=== PATIENT | female | born 1930 | race Caucasian/White ===

== ENCOUNTER → 2016-08-08 | Outpatient (CLI) | payer OTHER ==
[~2016-08-08] MED LIST: AMLO-110 PO; ARC5 PO; ASPI81TA28 PO; CLTP PO; CPR250 PO; DABI1CAP PO; LEVO100T48 PO; LOSA50TA54 PO; LPR25 PO; MGN PO; MULT-506 PO; SIMV20TA5 PO; TRIA37.5 PO
== END | disposition home or self-care (01) ==
LOC: C.LABSPEC 12:26
PROVIDERS: ATTEND Internal Medicine
DX: Z12.11 Encounter for screening for malignant neoplasm of colon (principal)

== ENCOUNTER → 2016-08-13 | Outpatient (CLI) | payer OTHER ==
[2016-08-13 15:37] LABS: BASO % 0.9 %; BASO ABS # 0.05 K/uL (0-0.2); COMPLETE YES; EOS % 2.8 %; HEMATOCRIT 32.9 % (37-47); IG% 0.4 %; LYMPH % 18.2 %; LYMPH ABS # 0.97 K/uL (1.2-3.4); MEAN CORPUSCULAR HGB CONC 31.9 g/dl (32-36); MEAN PLATELET VOLUME 11.5 fL (7.4-10.4); MONO % 6.7 %; PLATELET COUNT 254 K/uL (130-400); WHITE BLOOD COUNT 5.34 K/uL (4.8-10.8)
[2016-08-13 15:45] LABS: BLOOD UREA NITROGEN 41 mg/dl (7-18); BUN/CREATININE RATIO 25.9 (10-20); GLUCOSE 165 mg/dl (70-99); SODIUM 138 mmol/L (136-145)
[2016-08-13 15:46] LABS: ALT/SGPT 16 U/L (12-78); AST/SGOT 18 U/L (15-37); CALCIUM 8.7 mg/dl (8.5-10.1); CARBON DIOXIDE 25 mmol/L (21-32); CHLORIDE 106 mmol/L (98-107); CHOLESTEROL 179 mg/dl (0-200); POTASSIUM 4.5 mmol/L (3.5-5.1); TRIGLYCERIDES 142 mg/dl (0-150); VERY LOW DENSITY LIPOPROT CALC 28 mg/dl
[2016-08-13 15:53] LABS: ALB/GLOB RATIO 0.9 (0.9-2); ALKALINE PHOSPHATASE 69 U/L (45-117); CHOLESTEROL/HDL RATIO 3.7; HDL CHOLESTEROL 48 mg/dl; THYROID STIMULATING HORMONE 0.459 uIu/ml (0.300-4.500)
== END | disposition home or self-care (01) ==
LOC: C.LABSPEC 15:10
PROVIDERS: ATTEND Internal Medicine
DX: Z00.01 Encounter for general adult medical examination with abnormal findings (principal); I25.10 Atherosclerotic heart disease of native coronary artery without angina pectoris; E03.9 Hypothyroidism, unspecified; I10 Essential (primary) hypertension

== ENCOUNTER 2017-02-04 14:55 | Inpatient (IN) | payer OTHER ==
[2017-02-04] VITALS (7 sets, daily range): BP systolic 183–205; BP diastolic 45–72; PULSE 89–101; TEMP 36.3–36.8; O2SAT 96–98; Ht 172.1 cm; Wt 73.1 kg
[~2017-02-04] VITALS: Ht 172.1 cm; Wt 73.1 kg
[~2017-02-04 14:55] MED LIST changes: -ARC5 PO; -CPR250 PO
[2017-02-04] MEDS ORDERED: ACETAMINOPHEN 325 MG TAB PO PRN (15:15)
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
[2017-02-04 16:11] LABS: HEMATOCRIT 33.3 % (37-47); MEAN CELL VOLUME 92.5 fL (80-100); MEAN CORPUSCULAR HEMOGLOBIN 28.9 pg (25-34); MEAN PLATELET VOLUME 9.9 fL (7.4-10.4); PLATELET COUNT 257 K/uL (130-400)
[2017-02-04 16:25] LABS: INR 1.1 (0.9-1.1); PARTIAL THROMBOPLASTIN RATIO 1.2; PROTHROMBIN TIME (PATIENT) 11.3 SECONDS (9.0-12.0)
[2017-02-04 16:35] LABS: MEAN CORPUSCULAR HGB CONC 31.2 g/dl (32-36)
[2017-02-04 16:48] LABS: BASO % 0.4 %; BASO ABS # 0.03 K/uL (0-0.2); COMPLETE YES; EOS % 0.4 %; IG% 0.4 %; LYMPH % 5.7 %; LYMPH ABS # 0.45 K/uL (1.2-3.4); MONO % 0.8 %; NEUT % 92.3 %
[2017-02-04] MEDS: METHYLPREDNISOLONE IV 20 MG in SYRINGE 0 ML IV SCH ×2 (16:48→21:56)
[2017-02-04] MEDS ORDERED: HydrALAZINE HCL 20 MG/ML VIAL IV. STA (16:52)
[2017-02-04] MEDS ORDERED: HydrALAZINE HCL 20 MG/ML VIAL ONE (16:55)
[2017-02-04 17:05] LABS: ALB/GLOB RATIO 0.9 (0.9-2); ALKALINE PHOSPHATASE 79 U/L (45-117); ALT/SGPT 16 U/L (12-78); AST/SGOT 17 U/L (15-37); BLOOD UREA NITROGEN 43 mg/dl (7-18); BUN/CREATININE RATIO 28.4 (10-20); CALCIUM 8.8 mg/dl (8.5-10.1); CARBON DIOXIDE 22 mmol/L (21-32); CHLORIDE 114 mmol/L (98-107); GLUCOSE 125 mg/dl (70-99); MAGNESIUM 2.5 mg/dl (1.8-2.4); POTASSIUM 4.9 mmol/L (3.5-5.1); SODIUM 141 mmol/L (136-145)
[2017-02-04] MEDS ORDERED: LORAZEPAM INJ 0.5 MG in SYRINGE 0.25 ML IV SCH (17:30)
[2017-02-04 18:18] LABS: URINE APPEARANCE CLEAR (CLEAR); URINE BILIRUBIN NEG (NEG); URINE COLOR YELLOW; URINE NITRITE NEG (NEG); UROBILINOGEN NEG (NEG)
[2017-02-04 18:21] LABS: MANUAL MICROSCOPIC REQUIRED? NO; REVIEW REQ? NO
[2017-02-04] MEDS ORDERED: PATIENT'S HEIGHT AND/OR WEIGHT NEEDED SCH (19:00)
[2017-02-04] MEDS ORDERED: GADAVIST IV PRN (19:30)
--- NOTE | 2017-02-04 19:49 | DIAGNOSTIC IMAGING REPORT ---
MRI OF THE BRAIN COMBO CLINICAL HISTORY: Mental status change. COMPARISON STUDY: MRI of the brain dated 01/28/2009. TECHNIQUE: MRI of the brain was performed utilizing various T1 and T2-weighted sequences in the axial, sagittal, and coronal planes. Contrast-enhanced sequences were acquired following the administration of 5 cc of Gadavist. FINDINGS: Brain parenchyma: There are age-related involutional changes noting moderate patchy subcortical and periventricular microangiopathic disease. A chronic left parietal infarct is unchanged from previous. There is no hemorrhage or mass effect. There is no restricted diffusion to suggest acute ischemia. No enhancing mass lesion is identified on the postcontrast images. Sewell-white matter differentiation is preserved. No extra-axial fluid collection is seen. The cerebellar tonsils are normal in configuration. Ventricles, sulci, and cisterns: Prominent secondary to involutional change. Pituitary and sella: Unremarkable. Intracranial vasculature: Normal flow voids are maintained at the skull base. Orbits: The bony orbits are grossly intact. Orbital contents are normal in appearance noting bilateral ocular lens implants. Sinuses and mastoids: Clear. Calvarium: Unremarkable. Cervical cord: Partially visualized cervical spinal cord is normal in morphology and signal intensity. IMPRESSION: Senescent changes as above with no acute intracranial abnormality. Electronically signed by: Rene Almonte M.D. 02/04/2017 7:48 PM Dictated Date/Time: 02/04/2017 7:44 PM
[2017-02-04] MEDS: CALCIUM 600MG + VIT D 400 IU TAB PO SCH (21:24)
[2017-02-04] MEDS: LOSARTAN POTASSIUM 50 MG TAB PO SCH (21:24)
[2017-02-04] MEDS: SIMVASTATIN 20 MG TAB PO SCH (21:24)
[2017-02-04] MEDS: DABIGATRAN ELEXILATE 75 MG CAP PO SCH (21:25)
[2017-02-04] MEDS: METOPROLOL TARTRATE 25 MG TAB PO SCH (21:25)
--- NOTE | 2017-02-04 21:32 | DIAGNOSTIC IMAGING REPORT ---
ULTRASOUND OF THE CAROTID ARTERIES CLINICAL HISTORY: Change in mental status.. COMPARISON STUDY: Carotid artery ultrasound dated 12/01/2015. TECHNIQUE: Real-time, grayscale, and color Doppler sonography of the carotid arteries is performed. Images are reviewed in the transverse and longitudinal planes. FINDINGS: Blood pressure in the right arm measures 201/76 and blood pressure in the left arm measures 202/64. The carotid arteries are patent bilaterally and demonstrate antegrade flow. There is moderate echogenic shadowing atherosclerotic plaque seen on the right. Only mild plaque is seen on the left. Normal doppler arterial waveforms are seen throughout. Mildly elevated velocities within the left internal carotid artery proximally are likely on a technical basis. No significant stenosis is seen on the grayscale imaging. Velocity measurements are listed below. Common carotid peak systolic velocity (cm/sec): RIGHT: 125 LEFT: 127 ICA proximal peak systolic velocity (cm/sec): RIGHT: 204 LEFT: 149 ICA mid peak systolic velocity (cm/sec): RIGHT: 200 LEFT: 129 ICA distal peak systolic velocity (cm/sec): RIGHT: 138 LEFT: 109 ICA/CC peak systolic ratio: RIGHT: 1.6 LEFT: 1.2 Antegrade flow was shown in the vertebral arteries. The external carotid arteries are patent. Elevated velocities within the external carotid arteries suggests some degree of stenosis. IMPRESSION: 1. Findings are consistent with 50-69 % stenosis at the origin of the right internal carotid artery by velocity criteria. This is similar to previous. 2. There is no sonographic evidence of hemodynamically significant stenosis in the left carotid system. Mildly elevated velocities are likely on a technical basis. 3. Antegrade flow is shown in the vertebral arteries. 4. Elevated blood pressures as above. Electronically signed by: Rene Almonte M.D. 02/04/2017 9:30 PM Dictated Date/Time: 02/04/2017 9:27 PM
[2017-02-05] VITALS: BP 177/70; PULSE 78; TEMP 36.8; O2SAT 95
[2017-02-05] MEDS: METHYLPREDNISOLONE IV 20 MG in SYRINGE 0 ML IV SCH ×4 (03:59→21:08)
[2017-02-05] MEDS: METOPROLOL TARTRATE 25 MG TAB PO SCH ×3 (05:44→21:03)
[2017-02-05] MEDS: LEVOTHYROXINE 100 MCG TAB PO SCH (05:44)
[2017-02-05 07:56] LABS: COMPLETE YES; HEMATOCRIT 32.1 % (37-47); IG% 0.1 %; LYMPH % 7.5 %; LYMPH ABS # 0.59 K/uL (1.2-3.4); MEAN CORPUSCULAR HEMOGLOBIN 29.5 pg (25-34); MEAN CORPUSCULAR HGB CONC 32.1 g/dl (32-36); MEAN PLATELET VOLUME 9.9 fL (7.4-10.4); MONO % 1.1 %; NEUT % 91.3 %; PLATELET COUNT 247 K/uL (130-400); RED BLOOD COUNT 3.49 M/uL (4.2-5.4); WHITE BLOOD COUNT 7.85 K/uL (4.8-10.8)
[2017-02-05] MEDS: LOSARTAN POTASSIUM 50 MG TAB PO SCH ×2 (07:58→21:03)
[2017-02-05] MEDS: AMLODIPINE BESYLATE 5 MG TAB PO SCH (07:58)
[2017-02-05] MEDS: DABIGATRAN ELEXILATE 75 MG CAP PO SCH ×2 (07:58→21:03)
[2017-02-05] MEDS: ASPIRIN 81 MG ECTAB PO SCH (07:59)
[2017-02-05] MEDS: MULTIVITAMIN TAB PO SCH (07:59)
[2017-02-05] MEDS: TRIAMTERENE/HCTZ 37.5/25MG CAP PO SCH (07:59)
[2017-02-05] MEDS: CALCIUM 600MG + VIT D 400 IU TAB PO SCH ×2 (07:59→21:03)
[2017-02-05 08:07] VITALS: BP 174/80; PULSE 65; TEMP 36.6; O2SAT 96
[2017-02-05 08:27] LABS: BUN/CREATININE RATIO 29.2 (10-20); CALCIUM 9.3 mg/dl (8.5-10.1); CREATININE 1.5 mg/dl (0.60-1.20); POTASSIUM 5.1 mmol/L (3.5-5.1)
--- NOTE | 2017-02-05 09:14 | DIAGNOSTIC IMAGING REPORT ---
CHEST 2 VIEWS ROUTINE CLINICAL HISTORY: Mental status changes. COMPARISON STUDY: Chest radiograph February 10, 2015. FINDINGS: No pneumothorax or pleural effusion is present. There is no evidence of pulmonary edema. A lower mediastinal contour abnormality is noted. Mild bibasilar opacities are present. There is no lobar consolidation. IMPRESSION: 1. Mild bibasilar opacities which could reflect atelectasis or a mild infectious process. 2. Lower mediastinal contour abnormality which is nonspecific but may reflect a hiatal hernia. Electronically signed by: Estevan Mccoy M.D. 02/05/2017 9:13 AM Dictated Date/Time: 02/05/2017 9:08 AM
--- NOTE | 2017-02-05 10:44 | Progress Note ---
Progress Note Date of Service Feb 05, 2017. Progress Note 86-year-old female admitted directly from the office yesterday with mental status changes with severe memory deficit area from the time I saw her in the office in November of this year until yesterday her memory has deteriorated significantly. She denied any fall. No headache no dizziness no lightheadedness. No chest pain no shortness of breath. No abdominal pain no nausea no vomiting. She was not having any problem with any disequilibrium. She has a rash consistent with poison macie exposure Patient was admitted. All her laboratory tests and imaging studies were done. All her laboratory tests were quite unremarkable. MRI of the brain without and with contrast showed no evidence of any acute changes chest changes related to her age. Carotid artery ultrasound showed 50-69% stenosis of the right carotid artery. At this point she is feeling well. She she denied any headache. No dizziness or lightheadedness. No chest pain no shortness of breath. No nausea no vomiting. Tolerating her diet. No pain in her back or extremities. During our conversation and she asks the same question and makes the same comment 2-3 times. EXAMINATION She is well-developed in no distress. Vital signs: Blood pressure 174/80, pulse 65, respiration 18, temperature 36.6, oxygen saturation 96% on room air Skin is warm and dry. The rash from her poison macie exposure is resolving. She is on IV Solu-Medrol HEENT no mucosal abnormality. Neck is supple without lymph node or thyroid enlargement. No JVD. Left-sided neck scar. Heart regular heart sounds. Lungs are clear Abdomen is soft nontender. Back no spinal tenderness. Extremities no edema clubbing or cyanosis. Neurological examination she is quite conversant. As noted she asks the same question and repeated the same comments many times during a short conversation. No evidence of any lateralized deficit. LABORATORY TESTS WBC count 7850, hemoglobin 10.3, hematocrit 32.1%, platelet count 247,000. Sodium 140, potassium 5.1, chloride 112, CO2 22, BU and 44, creatinine 1.5, glucose 143, calcium 9.3 Carotid ultrasound showed 50-69% stenosis at the origin of the right internal carotid artery. No other significant abnormalities were noted. MRI of the brain without and with contrast showed age related changes without any other abnormalities ASSESSMENT * Mental status changes with severe memory deficit * Arterial hypertension * Paroxysmal atrial fibrillation * Hypothyroidism PLAN: * Continuing her medications * Continue IV Solu-Medrol * Neurology consultation. I spoke with Dr. Lance Delgadillo. * Case management consultation * I spoke with her daughter Michael. The plan at this time is to proceed with independent living under supervision at the [facility]. She told me that they have an appointment next Tuesday to look at the apartments. Case management will be making the referral so hopefully we'll could accelerate the process * I was able to walk with her around the unit today without any problem she maintains a good balance and equilibrium. * I spoke with her again today that she should not be driving. She is agreeable. I also spoke with her daughter about the same issue. She is also agreeable.
[2017-02-05] MEDS ORDERED: AMLODIPINE BESYLATE 5 MG TAB PO ONE (10:45)
--- NOTE | 2017-02-05 11:44 | Neurology Consultation ---
Neurology Consultation Date of Consultation: Feb 05, 2017. Attending Physician: Moose Chow M.D. Primary Care Physician: Moose Chow M.D. Reason for Consultation: Dementia History of Present Illness Source: patient, hospital records The patient is an 86-year-old female who complains of increasing difficulty with short-term memory that began gradually several years ago but has gotten significantly worse over time. She is and lives alone. She has a few children that live out of town that have noted she has had some problems with memory as well. She follows regularly with Dr. Liv Lama for several chronic medical conditions including hypertension, hypothyroidism and paroxysmal atrial fibrillation for which she is prescribed Pradaxa. She has a history of left carotid endarterectomy. Her medical condition has been stable although she was recently diagnosed with some poison macie affecting her right upper arm which she has been treating with a cream or ointment. The patient is aware that she has been having problems with her memory for quite some time. She does have some difficulty providing more specific information but seems to agree that recent or short-term memory is affected to a greater degree than distant memories. She has been noted to repeat herself often. She is able to recall details from her past and indicates that she has been living in the same single home in [place] for about 50 years. She continues to live independently although her family has expressed some concern recently over her ability to continue to do so. There are some tentative plans to consider alternative/assisted living arrangements. The patient continues to drive. I reviewed the images as well as the radiologist's interpretation of the recently completed brain MRI. The study does reveal rather significant generalized atrophy as well as chronic small vessel ischemic disease and evidence of a small chronic left parietal lobe infarct primarily affecting the cortex. Recently completed labs including a vitamin B-12 level, folate, and TFTs are within normal limits. A recently completed EKG reveals a normal sinus rhythm. Dr. Liv Lama indicated she has scored 22 out of 30 on a mini mental status examination recently. Family History Family history notable for some dementia in the mother who at an old age Social History Smoking Status: Never smoker Marital Status: Housing Status: lives alone Occupation Status: retired Allergies Coded Allergies: No Known Allergies (Verified , 05/30/14) Current Inpatient Medications Current Inpatient Medications Medications (Trade) Dose Ordered Sig/Mateo Route Start Time Stop Time Status Last Admin Dose Admin Acetaminophen (Tylenol Tab) 650 mg Q4H PRN PO 02/04/17 15:15 03/06/17 15:14 Methylprednisolone Sodium Succinate 20 mg/Syringe 0.32 ml @ 1.5 mls/min Q6H IV 02/04/17 16:00 03/06/17 15:59 02/05/17 10:19 1.5 MLS/MIN Amlodipine Besylate (Norvasc Tab) 5 mg DAILY PO 02/05/17 09:00 03/07/17 08:59 02/05/17 07:58 5 MG Aspirin (Ecotrin Tab) 81 mg DAILY PO 02/05/17 09:00 03/07/17 08:59 02/05/17 07:59 81 MG Calcium/Vitamin D (Caltrate Plus Tab) 1 tab BID PO 02/04/17 21:00 03/06/17 20:59 02/05/17 07:59 1 TAB Dabigatran (Pradaxa Cap) 75 mg BID PO 02/04/17 21:00 03/06/17 20:59 02/05/17 07:58 75 MG Levothyroxine Sodium (Synthroid Tab) 100 mcg DAILYBB PO 02/05/17 06:30 03/07/17 06:29 02/05/17 05:44 100 MCG Losartan Potassium (coZAAR TAB) 50 mg BID PO 02/04/17 21:00 03/06/17 20:59 02/05/17 07:58 50 MG Metoprolol Tartrate (Lopressor Tab) 25 mg Q8 PO 02/04/17 22:00 03/06/17 21:59 02/05/17 05:44 25 MG Multivitamins (Multivitamin Tab) 1 tab DAILY PO 02/05/17 09:00 03/07/17 08:59 02/05/17 07:59 1 TAB Simvastatin (Zocor Tab) 20 mg HS PO 02/04/17 21:00 03/06/17 20:59 02/04/17 21:24 20 MG Triamterene/HCTZ (Dyazide 37.5/25 Mg Cap) 1 cap DAILY PO 02/05/17 09:00 03/07/17 08:59 02/05/17 07:59 1 CAP Gadobutrol (Gadavist) 5 mmol UD PRN IV 02/04/17 19:30 02/08/17 19:29 Review of Systems Constitutional: No fever or chills Eyes: No vision loss or diplopia ENT: No gross hearing loss or vertigo Cardiovascular: No chest pain Respiratory: No shortness of breath Genitourinary: No incontinence Neurological: As per history of present illness Psychiatric: No depression or anxiety Skin: As per history of present illness A full 10 point review of systems was obtained on this patient with pertinent positives and negatives described in the history of present illness and otherwise listed above. All remaining systems reviewed and are negative. Physical Exam Vital Signs (Past 24 Hrs): Date Time Temp Pulse Resp B/P (MAP) Pulse Ox O2 Delivery O2 Flow Rate FiO2 02/05/17 08:45 Room Air 02/05/17 08:07 36.6 65 18 174/80 (111) 96 Room Air 02/05/17 00:00 36.8 78 18 177/70 (105) 95 Room Air 02/05/17 00:00 95 Room Air 02/04/17 21:33 94 189/52 (97) 02/04/17 20:11 36.3 94 18 183/72 (109) 97 Room Air 02/04/17 18:42 98 187/66 (106) 02/04/17 17:37 36.8 89 18 205/72 96 Room Air 02/04/17 17:17 101 195/45 (95) 98 Room Air 02/04/17 16:12 201/68 (112) 02/04/17 16:11 36.8 89 18 205/72 (116) 96 Room Air The patient is a well-developed, well-nourished, elderly female. She is lying comfortably in bed. She is alert and oriented to person, place, and day of the week. She misses the exact date. She exhibits impaired delayed recall, 0 out of 3 objects remembered. Attention and concentration seem to be normal. She was able to spell world backwards and followed multistep commands without much difficulty. Patient exhibits a normal spontaneous speech pattern and normal vocabulary. Fund of knowledge seems to be normal. Visual kenney full to confrontation. Visual acuity normal. Pupils equal round reactive to light and accommodation. Eye movements normal. Facial sensation intact. There is normal facial symmetry and strength. Hearing is diminished to finger rub bilaterally. Palate elevates to midline. Shoulder shrug strength intact bilaterally. Tongue protrudes to midline. Deep tendon reflexes are intact and symmetrical for the arms and legs. Plantar responses downgoing bilaterally. There is no dysdiadochokinesia or dysmetria with finger to nose or heel to chong. Ophthalmoscopic examination reveals normal-appearing optic disks and posterior segments. No papilledema or hemorrhages. Carotid pulses normal bilaterally, no bruits to auscultation. Gait and station normal. Muscle strength normal for the arms and legs bilaterally. Muscle tone normal throughout. No atrophy. No abnormal movements observed. Laboratory Results Past 24 Hours: 02/05/17 07:38 Red Blood Count 3.49, Mean Corpuscular Volume 92.0, Mean Corpuscular Hemoglobin 29.5, Mean Corpuscular Hemoglobin Concent 32.1, Mean Platelet Volume 9.9, Neutrophils (%) (Auto) 91.3, Lymphocytes (%) (Auto) 7.5, Monocytes (%) (Auto) 1.1, Eosinophils (%) (Auto) 0.0, Basophils (%) (Auto) 0.0, Neutrophils # (Auto) 7.16, Lymphocytes # (Auto) 0.59, Monocytes # (Auto) 0.09, Eosinophils # (Auto) 0.00, Basophils # (Auto) 0.00 02/05/17 07:38 Test 02/04/17 15:50 02/04/17 16:50 02/05/17 07:38 Prothrombin Time 11.3 SECONDS (9.0-12.0) Prothromb Time International Ratio 1.1 (0.9-1.1) Activated Partial Thromboplast Time 31.6 SECONDS (21.0-31.0) Partial Thromboplastin Ratio 1.2 Magnesium Level 2.5 mg/dl (1.8-2.4) Total Bilirubin 0.7 mg/dl (0.2-1) Aspartate Amino Transf (AST/SGOT) 17 U/L (15-37) Alanine Aminotransferase (ALT/SGPT) 16 U/L (12-78) Alkaline Phosphatase 79 U/L (45-117) Total Protein 7.6 gm/dl (6.4-8.2) Albumin 3.6 gm/dl (3.4-5.0) Globulin 4.0 gm/dl (2.5-4.0) Albumin/Globulin Ratio 0.9 (0.9-2) Vitamin B12 Level 543 pg/mL (211-911) Folate > 24.00 ng/mL (>5.38) Thyroid Stimulating Hormone (TSH) 1.690 uIu/ml (0.300-4.500) Free Thyroxine 1.19 ng/dl (0.80-1.60) Urine Color YELLOW Urine Appearance CLEAR (CLEAR) Urine pH 5.0 (4.5-7.5) Urine Specific [place]iner 1.020 (1.000-1.030) Urine Protein NEG (NEG) Urine Glucose (UA) NEG (NEG) Urine Ketones NEG (NEG) Urine Occult Blood TRACE (NEG) Urine Nitrite NEG (NEG) Urine Bilirubin NEG (NEG) Urine Urobilinogen NEG (NEG) Urine Leukocyte Esterase MODERATE (NEG) Urine WBC (Auto) 5-10 /hpf (0-5) Urine RBC (Auto) 0-4 /hpf (0-4) Urine Hyaline Casts (Auto) 1-5 /lpf (0-5) Urine Epithelial Cells (Auto) 10-20 /lpf (0-5) Urine Bacteria (Auto) NEG (NEG) White Blood Count 7.85 K/uL (4.8-10.8) Red Blood Count 3.49 M/uL (4.2-5.4) Hemoglobin 10.3 g/dL (12.0-16.0) Hematocrit 32.1 % (37-47) Mean Corpuscular Volume 92.0 fL (80-100) Mean Corpuscular Hemoglobin 29.5 pg (25-34) Mean Corpuscular Hemoglobin Concent 32.1 g/dl (32-36) Platelet Count 247 K/uL (130-400) Mean Platelet Volume 9.9 fL (7.4-10.4) Neutrophils (%) (Auto) 91.3 % Lymphocytes (%) (Auto) 7.5 % Monocytes (%) (Auto) 1.1 % Eosinophils (%) (Auto) 0.0 % Basophils (%) (Auto) 0.0 % Neutrophils # (Auto) 7.16 K/uL (1.4-6.5) Lymphocytes # (Auto) 0.59 K/uL (1.2-3.4) Monocytes # (Auto) 0.09 K/uL (0.11-0.59) Eosinophils # (Auto) 0.00 K/uL (0-0.5) Basophils # (Auto) 0.00 K/uL (0-0.2) RDW Standard Deviation 45.0 fL (36.4-46.3) RDW Coefficient of Variation 13.4 % (11.5-14.5) Immature Granulocyte % (Auto) 0.1 % Immature Granulocyte # (Auto) 0.01 K/uL (0.00-0.02) Anion Gap 6.0 mmol/L (3-11) Est Creatinine Clear Calc Drug Dose 25.9 ml/min Estimated GFR () 35.7 Estimated GFR (Non- 30.8 BUN/Creatinine Ratio 29.2 (10-20) Calcium Level 9.3 mg/dl (8.5-10.1) Impression 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 Simple bedside cognitive testing this morning suggests a problem with delayed recall or short- term memory which is consistent with her reported history. Plan I think starting treatment with a cholinesterase inhibitor such as donepezil would be reasonable for this patient. I would recommend starting with donepezil 5 mg at bedtime. I agree that it would be beneficial to start looking into an assisted living arrangement at this time in light of her dementia. In light of her diagnosis and reported poor performance on a Mini-Mental status examination recently she should probably not drive. This patient may follow-up with me in clinic Thank you for the consult
[2017-02-05 13:43] VITALS: BP 190/77; PULSE 68
[2017-02-05 15:40] VITALS: BP 153/76; PULSE 68; TEMP 36.7; O2SAT 96
[2017-02-05 20:54] VITALS: BP 188/68; PULSE 68
[2017-02-05] MEDS ORDERED: DONEPEZIL HCL 5 MG TAB PO SCH (21:00)
[2017-02-05] MEDS: SIMVASTATIN 20 MG TAB PO SCH (21:03)
[2017-02-05 23:23] VITALS: BP 167/74; PULSE 65; TEMP 36.8; O2SAT 93
[2017-02-06] MEDS: METHYLPREDNISOLONE IV 20 MG in SYRINGE 0 ML IV SCH ×2 (04:20→09:36)
[2017-02-06 05:47] VITALS: BP 197/45; PULSE 74
[2017-02-06] MEDS: METOPROLOL TARTRATE 25 MG TAB PO SCH (05:52)
[2017-02-06] MEDS: LEVOTHYROXINE 100 MCG TAB PO SCH (05:52)
[2017-02-06] MEDS: DABIGATRAN ELEXILATE 75 MG CAP PO SCH (07:30)
[2017-02-06] MEDS: AMLODIPINE BESYLATE 5 MG TAB PO SCH (07:31)
[2017-02-06] MEDS: MULTIVITAMIN TAB PO SCH (07:31)
[2017-02-06] MEDS: LOSARTAN POTASSIUM 50 MG TAB PO SCH (07:31)
[2017-02-06] MEDS: TRIAMTERENE/HCTZ 37.5/25MG CAP PO SCH (07:31)
[2017-02-06] MEDS: ASPIRIN 81 MG ECTAB PO SCH (07:31)
[2017-02-06] MEDS: CALCIUM 600MG + VIT D 400 IU TAB PO SCH (07:32)
[2017-02-06 07:56] VITALS: BP 181/75; PULSE 62; TEMP 36.3; O2SAT 90
[2017-02-06] MEDS ORDERED: AMLODIPINE BESYLATE 5 MG TAB PO SCH ×2 (09:00)
[2017-02-06] MEDS ORDERED: CIPROFLOXACIN 250 MG TAB PO SCH (09:00)
[2017-02-06] MEDS ORDERED: CPR250 PO (09:19)
[2017-02-06] MEDS ORDERED: ARC5 PO (09:19)
--- NOTE | 2017-02-06 09:24 | Discharge Instructions ---
Discharge Instructions Date of Service Feb 06, 2017. Admission Reason for Admission: Mental Status Change Dementia Arterial hypertension Paroxysmal atrial fibrillation Carotid artery disease Hypothyroidism Hyperlipidemia Urinary tract infection Discharge Discharge Diagnosis / Problem: mental status changes. Dementia. Urinary tract infection. Discharge Goals Goal(s): Decrease discomfort, Improve function, Increase independence, Improve disease control Activity Recommendations Activity Limitations: as noted below NO DRIVING . Instructions / Follow-Up Instructions / Follow-Up Dr Dahl next or Tuesday. Please call for appointment Current Hospital Diet Patient's current hospital diet: Regular Diet Discharge Diet Recommended Diet: Regular Diet Pending Studies Studies pending at discharge: no Medical Emergencies . Who to Call and When: Medical Emergencies: If at any time you feel your situation is an emergency, please call 911 immediately. . Non-Emergent Contact Non-Emergency issues call your: Primary Care Provider . . "Provider Documentation" section prepared by Moose Dahl. . VTE Core Measure Inpt VTE Proph given/why not?: Other Anticoagulation
--- NOTE | 2017-02-06 09:36 | Progress Note ---
Progress Note Date of Service Feb 06, 2017. Progress Note 86-year-old female admitted with mental status changes and severe changes as far as her memory is concerned. Her medical problems include arterial hypertension, paroxysmal atrial fibrillation, hypercholesterolemia, hypothyroidism. She also has a dermatitis secondary to poison macie. She was treated with IV Solu-Medrol. Her rash is subsiding. Patient was admitted. All her laboratory tests and imaging studies were done. There were quite unremarkable. Patient has developed dementia. Manifested mostly by marked her memory deficit of short-term memory. Patient was seen in neurology consultation by Dr. Lance Delgadillo. He recommended starting Aricept 5 mg daily which I stated yesterday. EXAMINATION She is well-developed in no distress Vital signs blood pressure 181/75, pulse 62, respiration 18, temperature 36.3, oxygen saturation 90% on room air Skin is warm and dry. Her rash is subsiding HEENT no mucosal abnormalities Neck supple without lymph node or thyroid enlargement. No JVD. Normal carotid pulses. Left carotid bruit. Surgical scar from prior carotid endarterectomy. Heart regular heart sounds without any murmur rub or gallop Lungs are clear Abdomen is soft nontender without organomegaly or masses Back no spinal tenderness Extremities no edema clubbing or cyanosis ASSESSMENT: * Mental status changes * Dementia * Arterial hypertension * Urinary tract infection * Paroxysmal atrial fibrillation * Dermatitis secondary to poison macie * Hypercholesteremia * Hypothyroidism PLAN: * She was already started on Aricept 5 mg daily. We will monitor how she reacts to the medication make sure she is tolerating it and eventually increased to 10 mg daily * She was started on ciprofloxacin 250 mg twice a day for her urinary tract infection * Continuing on her other medications * As noted yesterday the process has been initiated for her to go to the [facility]. Her daughter is coming on Tuesday of this coming week and they will be visiting the facility and make decisions as far as the services she needs. * She was asked not to drive. She is agreeable. * She is being discharged today * I will see her in the office next week * We will schedule a neurology follow-up as an outpatient in the future with Dr. Delgadillo
[2017-02-06 09:47] VITALS: BP 181/75; PULSE 62; TEMP 36.3; O2SAT 90
--- NOTE | 2017-02-17 21:49 | Discharge Summary ---
Discharge Summary Date of Service Feb 17, 2017. Discharge Summary ADMISSION DATE: 02/04/2017 DISCHARGE DATE: Q02/06/2017 DISCHARGE DIAGNOSES: * mental status changes * Dementia * Arterial hypertension * Paroxysmal atrial radiation * Carotid artery disease. Status post left carotid endarterectomy * Hypothyroidism * Hyperlipidemia * Urinary tract infection DISCHARGE MEDICATIONS: * ciprofloxacin 250 mg twice a day for 6 days * Aricept 5 mg daily * Amlodipine 5 mg daily * Aspirin 81 mg daily * Calcium with vitamin D 600 mg twice a day * Projects at 75 mg twice a day * Levothyroxine 0.1 mg daily 6 days a week. None on Tuesday. * Losartan 50 mg twice a day * Magnesium 250 mg daily * Metoprolol tartrate 25 mg every 8 hours in * Multivitamin one daily * Simvastatin 20 mg daily * Triamterene/HCTZ 37.5/25 one half tablet daily CONSULTATION: Dr. Lnace Delgadillo in neurology [id number] female admitted directly from the office with mental status changes. Patient with multiple medical problems as noted above. She was seen in the office on the day of admission because she developed a rash after working outside. It was related to poison macie. On the day prior to her admission she was started on Medrol Dosepak but she did not start the medication yet. Patient was noted by her family and by her friends that she has been extremely forgetful. Her condition has been deteriorating. I last saw her in the office in November. But from her last visit on per the day of admission I noticed remarkable changes with her memory. She cannot recall anything about the discussion that we just had. She asks the same question many time. She has not had any headache or dizziness. No lightheadedness. No chest pain or shortness of breath. No abdominal pain. No nausea or vomiting. She had no pain in her back or extremities. A Mini-Mental status examination was done in the office. She scored 22/30 points. Arrangements were made for admission. We called her friend. I did not want her to drive. Her friend came to the office and transported her to the hospital. PAST MEDICAL HISTORY, SOCIAL HISTORY, FAMILY HISTORY: As noted on admission history and physical ALLERGIES: NONE ADMISSION MEDICATIONS: As noted on the home medication list PHYSICAL EXAMINATION AND LABORATORY TESTS ARE NOTED ON ADMISSION HITORY AND PHYSICAL HOSPITAL COURSE: patient was admitted to a medical bed. Resuscitation everyone. All her laboratory tests were ordered. EKG was ordered. MRI of the brain was ordered. She was continued on her medications. Neurology consultation was requested. All of her laboratory tests were quite unremarkable. Her urine culture was positive. It grew Citrobacter. She was treated with ciprofloxacin. Carotid ultrasound showed findings consistent with 50-69% stenosis at the origin of the right internal carotid artery. There was no significant stenosis on the left side. MRI of the brain showed changes consistent with her age. Chest x-ray showed possible atelectasis. There was no evidence clinically of any infectious process. Electrocardiogram showed a sinus rhythm. Nonspecific ST-T wave changes. Her condition remained stable. She was seen in neurology consultation by Dr. Delgadillo. The recommendation was to start Aricept 5 mg daily. Arrangements were made for her to go home. Her friend did pick her up. Patient and her daughter had an appointment to visit the [facility] in order to make arrangements for her to move from her own home to the personal care facility.she was to have a followup with me in the office in one week.
== END 2017-02-06 13:20 | disposition home or self-care (01) | DRG 948 ==
LOC: C.MED 15:14
PROVIDERS: ADMIT Internal Medicine; ATTEND Internal Medicine
DX: R41.82 Altered mental status, unspecified (principal); N39.0 Urinary tract infection, site not specified; G30.9 Alzheimer's disease, unspecified; F02.80 Dementia in other diseases classified elsewhere, unspecified severity, without behavioral disturbance, psychotic disturbance, mood disturbance, and anxiety; F01.50 Vascular dementia, unspecified severity, without behavioral disturbance, psychotic disturbance, mood disturbance, and anxiety; I10 Essential (primary) hypertension; I48.0 Paroxysmal atrial fibrillation; E78.00 Pure hypercholesterolemia, unspecified; E03.9 Hypothyroidism, unspecified; I25.10 Atherosclerotic heart disease of native coronary artery without angina pectoris; L23.7 Allergic contact dermatitis due to plants, except food; Z79.01 Long term (current) use of anticoagulants; Z79.82 Long term (current) use of aspirin; Z79.899 Other long term (current) drug therapy; Z88.5 Allergy status to narcotic agent; Z88.7 Allergy status to serum and vaccine; Z88.8 Allergy status to other drugs, medicaments and biological substances; Z81.8 Family history of other mental and behavioral disorders; Z82.49 Family history of ischemic heart disease and other diseases of the circulatory system; Z82.3 Family history of stroke

== ENCOUNTER → 2017-04-11 | Outpatient (CLI) | payer OTHER ==
[~2017-04-11] MED LIST changes: +ACET-1311 PO; +ARC5 PO; +CIPR250T5 PO; +LEVO1TAB33 PO
== END | disposition home or self-care (01) ==
LOC: C.LABSPEC 15:30
PROVIDERS: ATTEND Internal Medicine
DX: I15.0 Renovascular hypertension (principal); N39.0 Urinary tract infection, site not specified

== ENCOUNTER 2017-04-15 10:59 | Emergency (ER) | payer OTHER ==
[~2017-04-15] VITALS: Ht 167.6 cm; Wt 73.3 kg
[~2017-04-15 10:59] MED LIST changes: -ACET-1311 PO; -LEVO1TAB33 PO
[2017-04-15 11:12] VITALS: TEMP 37
--- NOTE | 2017-04-15 11:24 | DIAGNOSTIC IMAGING REPORT ---
SINGLE VIEW CHEST CLINICAL HISTORY: Weakness. Change in mental status. FINDINGS: An AP, portable, upright chest radiograph is compared to study dated 02/05/2017. The heart is enlarged and there is atherosclerotic calcification of the thoracic aorta. There is mild pulmonary vascular congestion. Enlargement of the central pulmonary vessels suggests pulmonary artery hypertension. Emphysema is suspected. Chronic interstitial thickening is similar to previous. Apical scarring is observed. No airspace consolidation, large pleural effusion, or pneumothorax is seen. The skeletal structures are osteopenic. The bony thorax is grossly intact. IMPRESSION: 1. Cardiomegaly an mild pulmonary vascular congestion. 2. Suspect emphysema. No airspace consolidation or large pleural effusion is identified Electronically signed by: Rene lAmonte M.D. 04/15/2017 11:23 AM Dictated Date/Time: 04/15/2017 11:20 AM
[2017-04-15 11:25] VITALS: O2SAT 98
[2017-04-15 11:32] VITALS: Ht 167.6 cm; Wt 73.3 kg
[2017-04-15] MEDS ORDERED: ACET-1311 PO (11:48)
[2017-04-15] MEDS ORDERED: LEVO1TAB33 PO (11:48)
--- NOTE | 2017-04-15 11:56 | DIAGNOSTIC IMAGING REPORT ---
CT SCAN OF THE BRAIN WITHOUT IV CONTRAST CLINICAL HISTORY: Weakness. Change in mental status. COMPARISON STUDY: MRI of the brain dated 02/04/2017. TECHNIQUE: Unenhanced axial CT scan of the brain is performed from the vertex to the skull base. CT DOSE: 537.48 mGy.cm FINDINGS: Brain parenchyma: There are age-related involutional changes noting [id number] patchy subcortical and periventricular microangiopathic change. There is no hemorrhage, mass effect, or evidence of acute territorial ischemia by CT criteria. Sewell-white matter is preserved. No extra-axial fluid collection is seen. Ventricles, sulci, cisterns: Prominent secondary to involutional change. Intracranial vasculature: There is atherosclerotic calcification of the cavernous carotid arteries. Calvarium: Unremarkable. Sinuses and mastoids: Fluid/secretions is seen within the maxillary antra bilaterally. Mild mucosal thickening is present in the ethmoid sinuses. The mastoid air cells are well pneumatized. Orbits: The bony orbits are grossly intact. There are bilateral ocular lens implants. IMPRESSION: Senescent changes as above with no hemorrhage, mass effect, or evidence of acute territorial ischemia by CT criteria. Electronically signed by: Rene Almonte M.D. 04/15/2017 11:55 AM Dictated Date/Time: 04/15/2017 11:53 AM
[2017-04-15 12:01] LABS: BASO % 0.5 %; BASO ABS # 0.04 K/uL (0-0.2); COMPLETE YES; EOS % 0.6 %; IG% 0.7 %; LYMPH % 9.5 %; LYMPH ABS # 0.81 K/uL (1.2-3.4); MEAN CELL VOLUME 90.4 fL (80-100); MEAN CORPUSCULAR HGB CONC 33.2 g/dl (32-36); MEAN PLATELET VOLUME 9.5 fL (7.4-10.4); MONO % 8.5 %; NEUT % 80.2 %; PLATELET COUNT 318 K/uL (130-400); RED BLOOD COUNT 3.43 M/uL (4.2-5.4); WHITE BLOOD COUNT 8.57 K/uL (4.8-10.8)
[2017-04-15 12:09] LABS: INR 1.2 (0.9-1.1); PARTIAL THROMBOPLASTIN RATIO 1.3; PROTHROMBIN TIME (PATIENT) 12.5 SECONDS (9.0-12.0)
[2017-04-15 12:15] LABS: URINE APPEARANCE CLEAR (CLEAR); URINE BILIRUBIN NEG (NEG); URINE COLOR YELLOW; URINE NITRITE NEG (NEG); URINE PH 7.5 (4.5-7.5); UROBILINOGEN NEG (NEG)
[2017-04-15 12:19] LABS: ALT/SGPT 19 U/L (12-78); AST/SGOT 21 U/L (15-37); BLOOD UREA NITROGEN 18 mg/dl (7-18); BUN/CREATININE RATIO 12.7 (10-20); CARBON DIOXIDE 28 mmol/L (21-32); CHLORIDE 98 mmol/L (98-107); CREATININE 1.42 mg/dl (0.60-1.20); GLUCOSE 112 mg/dl (70-99); MAGNESIUM 2.5 mg/dl (1.8-2.4); POTASSIUM 4.3 mmol/L (3.5-5.1); SODIUM 132 mmol/L (136-145)
[2017-04-15 12:23] LABS: MANUAL MICROSCOPIC REQUIRED? NO; REVIEW REQ? NO
[2017-04-15 12:31] LABS: ALKALINE PHOSPHATASE 61 U/L (45-117); CKMB/CK RATIO 1.7 (0-3.0)
--- NOTE | 2017-04-15 16:10 | EMERGENCY ROOM VISIT NOTE ---
History Report prepared by Willie: Ted Reyes Under the Supervision of: Dr. Jimmy Lezama D.O. First contact with patient: 11:01 Stated Complaint: ILLNESS History of Present Illness The patient is a 86 year old female who presents to the Emergency Room by EMS with complaints of persistent generalized weakness beginning a few days ago. She is a resident at the [facility]. She states "I just don't feel normal". The patient also complains of a cough. She denies nausea, vomiting, diarrhea, headache, abdominal pain, fevers, chest pain, or SOB. She saw her PCP earlier this week and was started on Levaquin for UTI. Source of History: patient Onset: a few days ago Position: other (generalized) Quality: other (weakness) Timing: other (persistent) Associated Symptoms: + cough, No fevers, No headache, No chest pain, No SOB , No nausea, No vomiting, No abdominal pain, No diarrhea Review of Systems See HPI for pertinent positives & negatives. A total of 10 systems reviewed and were otherwise negative. Past Medical & Surgical Medical Problems: (1) Atrial fibrillation (2) Hypertension (3) MENTAL STATUS CHANGES Surgical Problems: (1) History of appendectomy Family History FHx: heart disease FHx: hypertension Social History Smoking Status: Never Smoker Alcohol Use: none Marital Status: Housing Status: lives alone Occupation Status: retired Current/Historical Medications Scheduled Amlodipine (Norvasc), 5 MG PO DAILY Aspirin (Aspirin Ec), 81 MG PO DAILY Calcium/Vitamin D (Caltrate 600 Plus *), 1 TAB PO BID Dabigatran Etexilate Mesylate (Pradaxa), 75 MG PO BID Donepezil HCl (Donepezil HCl), 5 MG PO QPM Levofloxacin (Levaquin), 500 MG PO DAILY Levothyroxine (Levoxyl), 0.1 MG PO 6XWK Losartan Potassium (Cozaar), 50 MG PO BID Magnesium (Magnesium), 250 MG PO DAILY Metoprolol Tartrate (Lopressor), 25 MG PO Q8 Multivitamin (Multivitamin), 1 TAB PO DAILY Simvastatin (Zocor), 20 MG PO HS Triamterene/Hctz (Dyazide 37.5MG/25MG), 0.5 TAB PO DAILY Scheduled PRN Acetaminophen (Tylenol), 650 MG PO Q4 PRN for Pain Allergies Coded Allergies: No Known Allergies (Verified , 04/15/17) Physical Exam Vital Signs Date Time Temp Pulse Resp B/P (MAP) Pulse Ox O2 Delivery O2 Flow Rate FiO2 04/15/17 17:00 88 16 157/72 98 04/15/17 15:17 65 16 167/72 98 Room Air 04/15/17 13:17 73 04/15/17 13:17 71 16 201/96 98 Room Air 04/15/17 11:52 63 16 173/69 98 Room Air 04/15/17 11:25 98 Room Air 04/15/17 11:24 60 186/68 64 167/74 88 177/59 04/15/17 11:24 98 Room Air 04/15/17 11:12 37.0 64 22 206/68 98 Room Air 04/15/17 11:06 64 Physical Exam GENERAL: Patient is awake, alert, and in no acute distress. Patient is resting comfortably and showing no signs of anxiety EYES: The conjunctivae are clear. The pupils are round and reactive. EARS, NOSE, MOUTH AND THROAT: The nose is without any evidence of any deformity. Mucous membranes are moist tongue is midline NECK: The neck is nontender and supple. RESPIRATORY: Scattered rhonchi throughout. No tachypnea or conversational dyspnea noted. CARDIOVASCULAR: Regular rate and rhythm noted there no murmurs rubs or gallops normal S1 normal S2 GASTROINTESTINAL: The abdomen is soft. Bowel sounds are present in all quadrants. Abdomen is nontender MUSCULOSKELETAL/EXTREMITIES: There is no evidence of gross deformity full range of motion is noted in the hips and shoulders SKIN: There is no obvious evidence of any rash. There are no petechiae, pallor or cyanosis noted. NEUROLOGIC: Awake, and oriented to person, place and situation. Strength was symmetric. Medical Decision & Procedures ER Provider Diagnostic Interpretation: Radiology results as stated below per my review and radiologist interpretation: CT SCAN OF THE BRAIN WITHOUT IV CONTRAST FINDINGS: Brain parenchyma: There are age-related involutional changes noting [id number] patchy subcortical and periventricular microangiopathic change. There is no hemorrhage, mass effect, or evidence of acute territorial ischemia by CT criteria. Sewell-white matter is preserved. No extra-axial fluid collection is seen. Ventricles, sulci, cisterns: Prominent secondary to involutional change. Intracranial vasculature: There is atherosclerotic calcification of the cavernous carotid arteries. Calvarium: Unremarkable. Sinuses and mastoids: Fluid/secretions is seen within the maxillary antra bilaterally. Mild mucosal thickening is present in the ethmoid sinuses. The mastoid air cells are well pneumatized. Orbits: The bony orbits are grossly intact. There are bilateral ocular lens implants. IMPRESSION: Senescent changes as above with no hemorrhage, mass effect, or evidence of acute territorial ischemia by CT criteria. Electronically signed by: Rene Almonte M.D. 04/15/2017 11:55 AM SINGLE VIEW CHEST FINDINGS: An AP, portable, upright chest radiograph is compared to study dated 02/05/2017. The heart is enlarged and there is atherosclerotic calcification of the thoracic aorta. There is mild pulmonary vascular congestion. Enlargement of the central pulmonary vessels suggests pulmonary artery hypertension. Emphysema is suspected. Chronic interstitial thickening is similar to previous. Apical scarring is observed. No airspace consolidation, large pleural effusion, or pneumothorax is seen. The skeletal structures are osteopenic. The bony thorax is grossly intact. IMPRESSION: 1. Cardiomegaly an mild pulmonary vascular congestion. 2. Suspect emphysema. No airspace consolidation or large pleural effusion is identified Electronically signed by: Rene Almonte M.D. 04/15/2017 11:23 AM Laboratory Results 04/15/17 11:31 Red Blood Count 3.43, Mean Corpuscular Volume 90.4, Mean Corpuscular Hemoglobin 30.0, Mean Corpuscular Hemoglobin Concent 33.2, Mean Platelet Volume 9.5, Neutrophils (%) (Auto) 80.2, Lymphocytes (%) (Auto) 9.5, Monocytes (%) (Auto) 8.5, Eosinophils (%) (Auto) 0.6, Basophils (%) (Auto) 0.5, Neutrophils # (Auto) 6.88, Lymphocytes # (Auto) 0.81, Monocytes # (Auto) 0.73, Eosinophils # (Auto) 0.05, Basophils # (Auto) 0.04 04/15/17 11:31 Test 04/15/17 11:23 04/15/17 11:31 04/15/17 12:01 Bedside Glucose 116 mg/dl (70-90) White Blood Count 8.57 K/uL (4.8-10.8) Red Blood Count 3.43 M/uL (4.2-5.4) Hemoglobin 10.3 g/dL (12.0-16.0) Hematocrit 31.0 % (37-47) Mean Corpuscular Volume 90.4 fL (80-100) Mean Corpuscular Hemoglobin 30.0 pg (25-34) Mean Corpuscular Hemoglobin Concent 33.2 g/dl (32-36) Platelet Count 318 K/uL (130-400) Mean Platelet Volume 9.5 fL (7.4-10.4) Neutrophils (%) (Auto) 80.2 % Lymphocytes (%) (Auto) 9.5 % Monocytes (%) (Auto) 8.5 % Eosinophils (%) (Auto) 0.6 % Basophils (%) (Auto) 0.5 % Neutrophils # (Auto) 6.88 K/uL (1.4-6.5) Lymphocytes # (Auto) 0.81 K/uL (1.2-3.4) Monocytes # (Auto) 0.73 K/uL (0.11-0.59) Eosinophils # (Auto) 0.05 K/uL (0-0.5) Basophils # (Auto) 0.04 K/uL (0-0.2) RDW Standard Deviation 43.5 fL (36.4-46.3) RDW Coefficient of Variation 13.3 % (11.5-14.5) Immature Granulocyte % (Auto) 0.7 % Immature Granulocyte # (Auto) 0.06 K/uL (0.00-0.02) Prothrombin Time 12.5 SECONDS (9.0-12.0) Prothromb Time International Ratio 1.2 (0.9-1.1) Activated Partial Thromboplast Time 33.2 SECONDS (21.0-31.0) Partial Thromboplastin Ratio 1.3 Anion Gap 6.0 mmol/L (3-11) Est Creatinine Clear Calc Drug Dose 28.0 ml/min Estimated GFR () 38.1 Estimated GFR (Non- 32.9 BUN/Creatinine Ratio 12.7 (10-20) Calcium Level 9.0 mg/dl (8.5-10.1) Magnesium Level 2.5 mg/dl (1.8-2.4) Total Bilirubin 0.6 mg/dl (0.2-1) Direct Bilirubin 0.1 mg/dl (0-0.2) Aspartate Amino Transf (AST/SGOT) 21 U/L (15-37) Alanine Aminotransferase (ALT/SGPT) 19 U/L (12-78) Alkaline Phosphatase 61 U/L (45-117) Total Creatine Kinase 111 U/L (26-192) Creatine Kinase MB 1.9 ng/ml (0.5-3.6) Creatine Kinase MB Ratio 1.7 (0-3.0) Troponin I < 0.015 ng/ml (0-0.045) Total Protein 7.1 gm/dl (6.4-8.2) Albumin 3.3 gm/dl (3.4-5.0) Thyroid Stimulating Hormone (TSH) 15.900 uIu/ml (0.300-4.500) Free Thyroxine 1.31 ng/dl (0.80-1.60) Urine Color YELLOW Urine Appearance CLEAR (CLEAR) Urine pH 7.5 (4.5-7.5) Urine Specific [place] 1.010 (1.000-1.030) Urine Protein NEG (NEG) Urine Glucose (UA) NEG (NEG) Urine Ketones NEG (NEG) Urine Occult Blood NEG (NEG) Urine Nitrite NEG (NEG) Urine Bilirubin NEG (NEG) Urine Urobilinogen NEG (NEG) Urine Leukocyte Esterase NEG (NEG) Laboratory results per my review. ECG Indication: SOB/dyspnea Rate (beats per minute): 62 Rhythm: normal sinus Findings: no acute ischemic change, no ectopy Comparison ECG Date: February 04, 2017 Change: no significant change ED Course 1103: The patient was evaluated in room C10. A complete history and physical examination were performed. Medical Decision Differential diagnosis: Etiologies such as metabolic, infection, hypo/hyperglycemia, electrolyte abnormalities, cardiac sources, intracerebral event, toxicologic, neurologic, as well as others were entertained. Nursing notes reviewed. The patient 86-year-old female who presented to emergency department for an evaluation of generalized weakness. Patient states that she "just doesn't feel right". The patient did not have any focal neurologic deficits. She was recently seen by her primary care physician and started on antibiotic for bronchitis and possible urinary tract infection. I discussed the patient's laboratory and radiographic studies with her. She was given a meal in the emergency department. She was reevaluated multiple times. She was able to ambulate without difficulty. I discussed her findings with her primary care physician. He is agreed to evaluate the patient in the office for further management and disposition. The patient was encouraged to continue all medications as prescribed and rest. She was also encouraged to return to the emergency department immediately if symptoms change worsen or the need arises. Medication Reconcilliation Current Medication List: was personally reviewed by me Blood Pressure Screening Patient's blood pressure: Elevated blood pressure Blood pressure disposition: Referred to PCP Consults Time Called: [phone] Consulting Physician: Dr. Jeanne ClarosFarragut Returned Call: [phone] I discussed the patient's case with Dr. Angel. The patient will be evaluated for further management. Impression Primary Impression: Weakness Additional Impression: Bronchitis Scribe Attestation The scribe's documentation has been prepared under my direction and personally reviewed by me in its entirety. I confirm that the note above accurately reflects all work, treatment, procedures, and medical decision making performed by me. Departure Information Dispostion Home / Self-Care Referrals Moose Chow M.D. (PCP) Forms HOME CARE DOCUMENTATION FORM, IMPORTANT VISIT INFORMATION, WORK / SCHOOL INSTRUCTIONS Patient Instructions Bronchitis Acute, ED Weakness [facility], My [facility] Additional Instructions Continue all medications as prescribed. Call your family to schedule a follow-up appointment. Rest and avoid any strenuous activity. Return to the emergency apartment immediately if symptoms change worsen or need arises Problem Qualifiers
[2017-04-15 17:00] VITALS: BP 157/72; PULSE 88; O2SAT 98
== END 2017-04-15 17:12 | disposition home or self-care (01) ==
LOC: EDBD 10:59 → C.EDC 11:03
DX: R53.1 Weakness (principal); J40 Bronchitis, not specified as acute or chronic; I48.91 Unspecified atrial fibrillation; I10 Essential (primary) hypertension; Z98.890 Other specified postprocedural states; Z79.82 Long term (current) use of aspirin; Z79.899 Other long term (current) drug therapy; Z82.49 Family history of ischemic heart disease and other diseases of the circulatory system

== ENCOUNTER → 2017-07-15 | Outpatient (CLI) | payer OTHER ==
[~2017-07-15] MED LIST changes: +ACET-1311 PO; -CIPR250T5 PO; +LEVO1TAB33 PO
[2017-07-15 18:47] LABS: BASO % 0.5 %; BASO ABS # 0.03 K/uL (0-0.2); EOS % 2.9 %; EOS ABS # 0.17 K/uL (0-0.5); HEMOGLOBIN 9.9 g/dL (12.0-16.0); IG# 0.01 K/uL (0.00-0.02); LYMPH % 18.5 %; MEAN CELL VOLUME 93.7 fL (80-100); MEAN CORPUSCULAR HEMOGLOBIN 29.9 pg (25-34); MEAN CORPUSCULAR HGB CONC 31.9 g/dl (32-36); MEAN PLATELET VOLUME 10.9 fL (7.4-10.4); MONO % 10.1 %; NEUT % 67.8 %; NEUT ABS # 4.05 K/uL (1.4-6.5); PLATELET COUNT 281 K/uL (130-400); RED CELL DISTRIBUTION WIDTH CV 13.9 % (11.5-14.5); WHITE BLOOD COUNT 5.96 K/uL (4.8-10.8)
[2017-07-15 18:56] LABS: ALBUMIN 3.4 gm/dl (3.4-5.0); ALT/SGPT 19 U/L (12-78); AST/SGOT 18 U/L (15-37); BLOOD UREA NITROGEN 36 mg/dl (7-18); CALCIUM 8.9 mg/dl (8.5-10.1); CARBON DIOXIDE 31 mmol/L (21-32); CREATININE 1.85 mg/dl (0.60-1.20); GLUCOSE 86 mg/dl (70-99); POTASSIUM 5.1 mmol/L (3.5-5.1); SODIUM 135 mmol/L (136-145)
[2017-07-15 19:04] LABS: ALKALINE PHOSPHATASE 52 U/L (45-117); CHOLESTEROL 176 mg/dl (0-200); LDL CHOLESTEROL (DIRECT) 106 mg/dl; TOTAL PROTEIN 7.3 gm/dl (6.4-8.2)
[2017-07-16 06:56] LABS: HEMOGLOBIN A1C 5.8 % (4.5-5.6)
== END | disposition home or self-care (01) ==
LOC: C.LABSPEC 18:16
PROVIDERS: ATTEND Internal Medicine
DX: I10 Essential (primary) hypertension (principal); E03.9 Hypothyroidism, unspecified; R73.9 Hyperglycemia, unspecified; E78.5 Hyperlipidemia, unspecified; I48.0 Paroxysmal atrial fibrillation

== ENCOUNTER 2017-09-30 05:08 | Inpatient (IN) | payer OTHER ==
[~2017-09-30] VITALS: Ht 170.2 cm; Wt 73.1 kg
[2017-09-30] VITALS (8 sets, daily range): BP systolic 149–173; BP diastolic 52–68; PULSE 57–64; TEMP 36.4–36.8; O2SAT 97–99; Ht 170.2 cm; Wt 73.1 kg
--- NOTE | 2017-09-30 05:25 | EMERGENCY ROOM VISIT NOTE ---
History Report prepared by Willie: Sandee Remy Under the Supervision of: Dr. Betina Boss D.O. First contact with patient: 05:10 Chief Complaint: SHORTNESS OF BREATH Stated Complaint: SHORT OF BREATH History of Present Illness The patient is an 86 year old female who presents to the Emergency Room brought in by EMS with complaints of persistent general shortness of breath for two nights. She notes that she feels anxious from not being able to sleep. She reports her breathing is worsened with exertion. She notes that anxiety can also worsen her breathing. She reports a cough. She notes that she has a hard time clearing her throat. She denies having a productive cough. She is a resident at [facility] since December 21, 2016. She has a history of bronchitis. She notes that walking makes her more tired. She notes her breathing is better with the oxygen. She denies any chest pain or abdominal pain. She notes leg cramps. She denies any leg swelling. She is wearing compression socks. Source of History: patient Onset: two nights Position: other (general ) Quality: other (shortness of breath) Timing: other (persistent) Associated Symptoms: + cough, No chest pain, No abdominal pain Note: She notes leg cramps, anxiety, and loss of sleep. She denies any leg swelling. Review of Systems See HPI for pertinent positives & negatives. A total of 10 systems reviewed and were otherwise negative. Past Medical & Surgical Medical Problems: (1) Atrial fibrillation (2) CHF (congestive heart failure) (3) Hypertension (4) MENTAL STATUS CHANGES Surgical Problems: (1) History of appendectomy Family History FHx: heart disease FHx: hypertension Social History Smoking Status: Never Smoker Smokeless Tobacco Use: No Alcohol Use: none Drug Use: none Marital Status: Housing Status: assisted living ([facility]) Occupation Status: retired Current/Historical Medications Scheduled Amlodipine (Norvasc), 5 MG PO DAILY Aspirin (Aspirin Ec), 81 MG PO DAILY Calcium Carbonate-Vitamin D (Calcium 600 + D), 1 TAB PO BID Dabigatran Etexilate Mesylate (Pradaxa), 75 MG PO BID Donepezil HCl (Donepezil HCl), 5 MG PO QPM Levothyroxine Sodium (Synthroid), 125 MCG PO DAILY Losartan Potassium (Cozaar), 50 MG PO BID Magnesium (Magnesium 250 mg), 1 TAB PO DAILY Metoprolol Tartrate (Lopressor), 25 MG PO Q8 Multivitamin (Multivitamin), 1 TAB PO DAILY Simvastatin (Zocor), 20 MG PO HS Triamterene/Hctz (Dyazide 37.5MG/25MG), 0.5 TAB PO DAILY Scheduled PRN Acetaminophen (Tylenol), 650 MG PO Q4 PRN for Pain Allergies Coded Allergies: Morphine (Verified Allergy, Unknown, UNKNOWN, 09/30/17) Zolpidem (Verified Allergy, Unknown, UNKNOWN, 09/30/17) Physical Exam Vital Signs Date Time Temp Pulse Resp B/P (MAP) Pulse Ox O2 Delivery O2 Flow Rate FiO2 09/30/17 06:38 57 19 99 Nasal Cannula 3.0 09/30/17 06:31 174/93 09/30/17 06:21 87 Room Air 09/30/17 06:19 192/90 09/30/17 06:08 60 21 09/30/17 05:38 63 19 98 Nasal Cannula 3.0 09/30/17 05:18 65 09/30/17 05:16 36.9 71 20 197/73 88 Room Air 09/30/17 05:16 89 Room Air 09/30/17 05:13 197/73 Physical Exam HEENT: Head - normocephalic and atraumatic Pupils are equal, round, and reactive to light. Extraocular eye muscles are intact, and sclera are anicteric. Nose - moist nasal mucosa without discharge. Mouth - moist buccal mucosa. Oropharynx is nonerythematous and there is no tonsillar exudate or edema noted. Neck: Supple; no JVD, nuchal rigidity, cervical lymphadenopathy, or auscultated bruits. Heart: Regular rate and rhythm. There is a normal S1 and S2 with no murmurs, clicks, or gallops appreciated. Lungs: Diminished breath sounds at the bases Abdomen: Soft, completely nontender, nondistended, with good bowel sounds. There are no palpable pulsatile masses or hepatosplenomegaly. There is no guarding, rigidity, or rebound noted. Extremities: Trace pedal edema bilaterally. Skin: warm and dry with good turgor and no rashes. Medical Decision & Procedures ER Provider Diagnostic Interpretation: Radiology results as stated below per my review and interpretation: CHEST XR: Evidence of pulmonary edema with bilateral pleural effusions. Cardiomegaly. Laboratory Results 09/30/17 05:36 Red Blood Count 3.25, Mean Corpuscular Volume 92.6, Mean Corpuscular Hemoglobin 29.8, Mean Corpuscular Hemoglobin Concent 32.2, Mean Platelet Volume 10.3, Neutrophils (%) (Auto) 69.7, Lymphocytes (%) (Auto) 16.9, Monocytes (%) (Auto) 8.7, Eosinophils (%) (Auto) 3.8, Basophils (%) (Auto) 0.7, Neutrophils # (Auto) 4.24, Lymphocytes # (Auto) 1.03, Monocytes # (Auto) 0.53, Eosinophils # (Auto) 0.23, Basophils # (Auto) 0.04 Test 09/30/17 05:36 09/30/17 07:10 White Blood Count 6.08 K/uL (4.8-10.8) Red Blood Count 3.25 M/uL (4.2-5.4) Hemoglobin 9.7 g/dL (12.0-16.0) Hematocrit 30.1 % (37-47) Mean Corpuscular Volume 92.6 fL (80-100) Mean Corpuscular Hemoglobin 29.8 pg (25-34) Mean Corpuscular Hemoglobin Concent 32.2 g/dl (32-36) Platelet Count 169 K/uL (130-400) Mean Platelet Volume 10.3 fL (7.4-10.4) Neutrophils (%) (Auto) 69.7 % Lymphocytes (%) (Auto) 16.9 % Monocytes (%) (Auto) 8.7 % Eosinophils (%) (Auto) 3.8 % Basophils (%) (Auto) 0.7 % Neutrophils # (Auto) 4.24 K/uL (1.4-6.5) Lymphocytes # (Auto) 1.03 K/uL (1.2-3.4) Monocytes # (Auto) 0.53 K/uL (0.11-0.59) Eosinophils # (Auto) 0.23 K/uL (0-0.5) Basophils # (Auto) 0.04 K/uL (0-0.2) RDW Standard Deviation 47.0 fL (36.4-46.3) RDW Coefficient of Variation 14.0 % (11.5-14.5) Immature Granulocyte % (Auto) 0.2 % Immature Granulocyte # (Auto) 0.01 K/uL (0.00-0.02) Est Creatinine Clear Calc Drug Dose 24.2 ml/min Total Bilirubin 0.6 mg/dl (0.2-1) Aspartate Amino Transf (AST/SGOT) U/L (15-37) Alanine Aminotransferase (ALT/SGPT) 26 U/L (12-78) Alkaline Phosphatase 52 U/L (45-117) Troponin I < 0.015 ng/ml (0-0.045) Pro-B-Type Natriuretic Peptide 2715 pg/ml (0-1800) Total Protein 6.8 gm/dl (6.4-8.2) Albumin 3.1 gm/dl (3.4-5.0) Globulin 3.7 gm/dl (2.5-4.0) Albumin/Globulin Ratio 0.8 (0.9-2) Laboratory results per my review. Medications Administered Medications (Trade) Dose Ordered Sig/Mateo Route Start Time Stop Time Status Last Admin Dose Admin Furosemide (Lasix Inj) 40 mg NOW STAT IV 09/30/17 06:14 09/30/17 06:15 DC 09/30/17 06:14 40 MG Procedure 0614: Ordered Lasix 40 mg IV ECG Per My Interpretation Indication: SOB/dyspnea Rate (beats per minute): 60 Rhythm: normal sinus Findings: nonspecific-ST abn, no acute ischemic change, no ectopy ED Course 0517: Past medical records reviewed. The patient was evaluated in room B7. A complete history and physical exam was performed. IV lock was established. A 12 -lead EKG was obtained. A portable chest x-ray was performed. She was placed on supplemental oxygen as her triage O2 saturation was 88%. 0612: I reassessed the patient at this time. The patient was walking out of the bathroom and was very short of breath. Her O2sat was 86% on RA. I discussed the results and treatment plan with the patient. I answered all pertaining questions that she had. She expressed understanding and verbalized agreement. The patient will be further evaluated. 0614: Ordered Lasix 40 mg IV 0627: I spoke with Dr. Mora, [facility] hospitalist. We discussed the patient's case. The patient will be evaluated by the [facility] for further management. Medical Decision The patient is an 86 year old female who presents to the ED with shortness of breath. Differential diagnosis includes bronchitis, PNA, CHF, anxiety, and sleep deprivation. Lab results showed: No leukocytosis. More anemic than usual. Hemoglobin 9.7. BUN 37. Creat 1.7, which about her baseline. Gluc 95. BNP 2,715. Negative Troponin. This is an 86-year-old female patient presents to the emergency department with insomnia, orthopnea, and exertional shortness of breath. Patient also complains of a cough but this has been more chronic. She denies any fevers. Patient was hypoxic upon presentation. Chest x-ray is concerning for pulmonary edema. Patient was given an IV dose of Lasix. I discussed the case with the [facility] Hospitalist and they will evaluate for further management. Medication Reconcilliation Current Medication List: was personally reviewed by me Blood Pressure Screening Patient's blood pressure: Elevated blood pressure monitored by hospitalist Consults Time Called: [phone] Consulting Physician: Dr. Mora [facility] hospitalist Returned Call: [phone] Mora [facility] hospitalist. We discussed the patient's case. The patient will be evaluated by the [facility] for further management. Impression Primary Impression: Congestive heart failure Additional Impression: Hypoxia Scribe Attestation The scribe's documentation has been prepared under my direction and personally reviewed by me in its entirety. I confirm that the note above accurately reflects all work, treatment, procedures, and medical decision making performed by me. Departure Information Dispostion Being Evaluated By Hospitalist Referrals Moose Chow M.D. (PCP) Patient Instructions My [facility] Health Problem Qualifiers Primary Impression: Congestive heart failure Heart failure type: unspecified Heart failure chronicity: acute Qualified Codes: I50.9 - Heart failure, unspecified
[2017-09-30] MEDS ORDERED: LEVO125T72 PO (05:41)
[2017-09-30] MEDS ORDERED: MAGN250T3 PO (05:41)
[2017-09-30 05:43] LABS: BASO % 0.7 %; BASO ABS # 0.04 K/uL (0-0.2); EOS % 3.8 %; EOS ABS # 0.23 K/uL (0-0.5); HEMATOCRIT 30.1 % (37-47); HEMOGLOBIN 9.7 g/dL (12.0-16.0); IG# 0.01 K/uL (0.00-0.02); LYMPH % 16.9 %; LYMPH ABS # 1.03 K/uL (1.2-3.4); MEAN CELL VOLUME 92.6 fL (80-100); MEAN CORPUSCULAR HEMOGLOBIN 29.8 pg (25-34); MEAN CORPUSCULAR HGB CONC 32.2 g/dl (32-36); MEAN PLATELET VOLUME 10.3 fL (7.4-10.4); MONO % 8.7 %; MONO ABS # 0.53 K/uL (0.11-0.59); NEUT % 69.7 %; NEUT ABS # 4.24 K/uL (1.4-6.5); PLATELET COUNT 169 K/uL (130-400); WHITE BLOOD COUNT 6.08 K/uL (4.8-10.8)
[2017-09-30] MEDS ORDERED: CALC-20 PO (05:44)
[2017-09-30 06:05] LABS: ALBUMIN 3.1 gm/dl (3.4-5.0); ALKALINE PHOSPHATASE 52 U/L (45-117); ALT/SGPT 26 U/L (12-78); BLOOD UREA NITROGEN 37 mg/dl (7-18); CALCIUM 8.7 mg/dl (8.5-10.1); CARBON DIOXIDE 26 mmol/L (21-32); CREATININE 1.73 mg/dl (0.60-1.20); GLUCOSE 95 mg/dl (70-99); SODIUM 137 mmol/L (136-145); TOTAL PROTEIN 6.8 gm/dl (6.4-8.2)
[2017-09-30] MEDS ORDERED: FUROSEMIDE 40 MG/4 ML VIAL IV STA (06:14)
[2017-09-30] MEDS ORDERED: ONDANSETRON INJ 2 MG/ML 2 ML VIAL IV PRN (06:45)
[2017-09-30] MEDS ORDERED: ALUMINUM/MAGNESIUM/SIMETH (MAALOX MAX) 30 ML UDC PO PRN (06:45)
[2017-09-30] MEDS ORDERED: POLYETHYLENE (MIRALAX) 17 GM PACK PO PRN (06:45)
[2017-09-30] MEDS ORDERED: ACETAMINOPHEN 325 MG TAB PO PRN (06:45)
[2017-09-30] MEDS ORDERED: MAGNESIUM HYDROXIDE SUSP 30 ML UDC PO PRN (06:45)
--- NOTE | 2017-09-30 06:47 | DIAGNOSTIC IMAGING REPORT ---
CHEST ONE VIEW PORTABLE HISTORY: 86 years-old Female sob acute shortness of breath COMPARISON: Chest radiograph 04/15/2017 TECHNIQUE: Portable AP view of the chest FINDINGS: Cardiac silhouette is enlarged. Atherosclerosis of the aorta. Calcifications of the tracheobronchial tree. Biapical pleural-parenchymal scarring without pneumothorax. Small bilateral pleural effusions with bilateral patchy mixed interstitial and alveolar opacities within a mid and lower lung zone predominant distribution. The bones of the chest appear grossly intact. Degenerative changes are seen within the shoulders and spine. IMPRESSION: 1. Bilateral mixed interstitial and alveolar opacities within a mid and lower lung zone predominant distribution are suspicious for pneumonia with pulmonary edema thought to be less likely. 2. Small bilateral pleural effusions. 3. Cardiomegaly. The above report was generated using voice recognition software. It may contain grammatical, syntax or spelling errors. Electronically signed by: Adiel Valentin M.D. 09/30/2017 6:46 AM Dictated Date/Time: 09/30/2017 6:43 AM
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
[2017-09-30] MEDS ORDERED: IV FLUIDS COMPLETED PRN (07:00)
[2017-09-30] MEDS ORDERED: NITROGLYCERIN 2% OINTMENT 30GM TUBE EXT ONE (08:30)
[2017-09-30] MEDS: ASPIRIN 81 MG ECTAB PO SCH (08:50)
[2017-09-30] MEDS: MAGNESIUM OXIDE 400 MG TAB PO SCH (08:50)
[2017-09-30] MEDS: LEVOTHYROXINE 125 MCG TAB PO SCH (08:50)
[2017-09-30] MEDS: AMLODIPINE BESYLATE 5 MG TAB PO SCH (08:51)
[2017-09-30] MEDS: LOSARTAN POTASSIUM 50 MG TAB PO SCH ×2 (08:51→20:54)
[2017-09-30] MEDS: DABIGATRAN ELEXILATE 75 MG CAP PO SCH ×2 (08:51→20:54)
[2017-09-30] MEDS ORDERED: PERFLUTREN LIPID MICROSPHERE (DEFINITY) IV ONE (09:49)
[2017-09-30 11:16] LABS: BLOOD UREA NITROGEN 36 mg/dl (7-18); CALCIUM 8.9 mg/dl (8.5-10.1); CARBON DIOXIDE 29 mmol/L (21-32); CREATININE 1.67 mg/dl (0.60-1.20); GLUCOSE 108 mg/dl (70-99); POTASSIUM 4.4 mmol/L (3.5-5.1); SODIUM 140 mmol/L (136-145)
[2017-09-30] MEDS ORDERED: HEPARIN SOD 5000 UNIT/0.5 ML CARP SQ SCH (14:00)
--- NOTE | 2017-09-30 14:16 | Hospitalist Progress Note ---
Hospitalist Progress Note Date of Service Sep 30, 2017. (Mendy Riley PA-C) Subjective Pt evaluation today including: conversation w/ patient, physical exam, chart review, lab review, review of studies The patient was seen and examined this morning. Pt reports doing better compared to earlier. Breathing still labored with exertion, requiring 3L O2 via NC where normally does not need O2. She is urinating without difficulty and ambulating to the bathroom. She moved to the [place] last December and has been eating there for 3 meals daily, and that the food is "very goo" although unlikely low sodium diet. Constitutional: No fever, No chills, No sweats Respiratory: + shortness of breath, + dyspnea on exertion, No cough, No sputum, No wheezing, No dyspnea at rest Cardiovascular: No chest pain, No palpitations Abdomen: No pain, No nausea, No vomiting, No diarrhea, No constipation Musculoskeletal: No joint pain, No muscle pain Neurologic: No weakness (uses a walker for assistance), No numbness/tingling (Mendy Riley PA-C) Objective Vital Signs Date Time Temp Pulse Resp B/P (MAP) Pulse Ox O2 Delivery O2 Flow Rate FiO2 09/30/17 11:43 36.7 64 16 155/59 (91) 97 Nasal Cannula 3.0 09/30/17 08:16 36.4 58 18 173/61 (98) 99 Nasal Cannula 3.0 09/30/17 07:15 99 Nasal Cannula 3.0 09/30/17 06:38 57 19 99 Nasal Cannula 3.0 09/30/17 06:31 174/93 09/30/17 06:21 87 Room Air 09/30/17 06:19 192/90 09/30/17 06:08 60 21 09/30/17 05:38 63 19 98 Nasal Cannula 3.0 09/30/17 05:18 65 09/30/17 05:16 36.9 71 20 197/73 88 Room Air 09/30/17 05:16 89 Room Air 09/30/17 05:13 197/73 (Mendy Riley PA-C) Physical Exam General Appearance: WD/WN, no apparent distress Eyes: PERRL, EOMI ENT: hearing grossly normal, pharynx normal Neck: supple, no JVD Respiratory/Chest: no respiratory distress, no accessory muscle use, + pertinent finding (on 3 L via NC, + diminished breath sounds throughout, + crackles bibasilarly) Cardiovascular: regular rate, rhythm, + JVD, + systolic murmur Abdomen: normal bowel sounds, non tender, soft Extremities: non-tender, no pedal edema, no calf tenderness Neurologic/Psychiatric: alert, normal mood/affect, oriented x 3 Skin: normal color, warm/dry (Mendy Riley, MARVA) Laboratory Results Last 24 Hours Test 09/30/17 05:36 09/30/17 10:35 White Blood Count 6.08 K/uL Red Blood Count 3.25 M/uL Hemoglobin 9.7 g/dL Hematocrit 30.1 % Mean Corpuscular Volume 92.6 fL Mean Corpuscular Hemoglobin 29.8 pg Mean Corpuscular Hemoglobin Concent 32.2 g/dl Platelet Count 169 K/uL Mean Platelet Volume 10.3 fL Neutrophils (%) (Auto) 69.7 % Lymphocytes (%) (Auto) 16.9 % Monocytes (%) (Auto) 8.7 % Eosinophils (%) (Auto) 3.8 % Basophils (%) (Auto) 0.7 % Neutrophils # (Auto) 4.24 K/uL Lymphocytes # (Auto) 1.03 K/uL Monocytes # (Auto) 0.53 K/uL Eosinophils # (Auto) 0.23 K/uL Basophils # (Auto) 0.04 K/uL RDW Standard Deviation 47.0 fL RDW Coefficient of Variation 14.0 % Immature Granulocyte % (Auto) 0.2 % Immature Granulocyte # (Auto) 0.01 K/uL Sodium Level 137 mmol/L 140 mmol/L Potassium Level mmol/L 4.4 mmol/L Chloride Level 109 mmol/L 106 mmol/L Carbon Dioxide Level 26 mmol/L 29 mmol/L Anion Gap 2.0 mmol/L 5.0 mmol/L Blood Urea Nitrogen 37 mg/dl 36 mg/dl Creatinine 1.73 mg/dl 1.67 mg/dl Est Creatinine Clear Calc Drug Dose 24.2 ml/min 25.0 ml/min Estimated GFR () 30.0 31.3 Estimated GFR (Non- 25.9 27.0 BUN/Creatinine Ratio 21.5 21.6 Random Glucose 95 mg/dl 108 mg/dl Calcium Level 8.7 mg/dl 8.9 mg/dl Total Bilirubin 0.6 mg/dl Aspartate Amino Transf (AST/SGOT) U/L Alanine Aminotransferase (ALT/SGPT) 26 U/L Alkaline Phosphatase 52 U/L Troponin I < 0.015 ng/ml < 0.015 ng/ml Pro-B-Type Natriuretic Peptide 2715 pg/ml Total Protein 6.8 gm/dl Albumin 3.1 gm/dl Globulin 3.7 gm/dl Albumin/Globulin Ratio 0.8 (Mendy Riley PA-C) Assessment and Plan 86 y/o F Hx PAF, HTN, CKD III, hypothyroid, anemia. Presents with SOB which woke her up from sleep. She reports she has been SOB over the past few days and has had difficulty with any exertion. She also states she has had difficulty lying flat and sleeping as a result. She denies CP, a productive cough, fevers. Initial imaging and clinical exam are consistent with acute CHF. CHF - possibly acute - - Echo ordered, Lasix provided - received 40mg IV in ER - ordered 40 mg IV BID as pt still with shortness of breath, +JVD and edema in BLE. Creatinine slightly improved with diuresis, so likely volume overload - HOLD HCTZ/Triamterene, continue Losartan and apply NTG. - CXR reviewed:. Bilateral mixed interstitial and alveolar opacities within a mid and lower lung zone predominant distribution are suspicious for pneumonia with pulmonary edema thought to be less likely. Small bilateral pleural effusions. Cardiomegaly. Afebrile, no signs of acute respiratory infection however monitor for possible involvement - if not improving with diuretics alone consider pneumonia History of CAD - will trend trop to r/o acute precipitating event - first 2 sets are negative - cont ASA, statin CKD III - creat slightly improved with diuresis. - Baseline appears to be around ~1.5 Anemia - Hb is at baseline. PAF - currently sinus - anticoagulated with Pradaxa and Metoprolol. Hypothyroid - cont Synthroid DVT ppx: pradaxa CODE: Full code Disposition: From the [facility] to assist with dc planning. (Mendy Riley PA-C) I personally interviewed and examined the patient. I agree with history of present illness and physical exam mentioned above, I also performed my own history taking and examination. Past medical history and review of system has been obtained by myself I reviewed all pertinent labs and studies Reviewed current medications I discussed and formulated of the assessment and plan mentioned above. Please refer to the Summary mentioned below. 86-year-old female with paroxysmal atrial fibrillation, hypertension, chronic kidney disease stage III. Carotid artery disease status post endarterectomy Patient presented with acute onset shortness of breath that woke her up from sleep. Presentation and imaging were suggestive to acute congestive heart failure. Symptoms improved after Lasix IV. 2D echo was ordered to specify type of CHF. Currently appears to be more stable. We will continue gentle diuresis. We will order anemia study as I think it is contributing to her CHF symptoms Continue anticoagulation for her atrial fibrillation, currently rate controlled sinus rhythm General Appearance: not in acute distress Eyes: normal Sclerae, extraocular muscle intact ENT: hearing grossly normal Neck: supple Respiratory/Chest: normal air entry bilateral ,no respiratory distress, no accessory muscle use, does have fine rales bibasilar Cardiovascular: Irregular irregularity with soft low intensity systolic murmur Abdomen: non tender, soft, no masses Extremities: no edema musculoskeletal: no significant swelling or inflammation in any joint Neurologic/Psychiatric: Awake alert oriented times place and person moves all extremities sensation intact cranial nerves II-12 appear to be intact Skin: normal color, warm/dry, no rash Ignacio Virk MD, [facility] hospitalist group (Osmany Virk, Ignacio Peña MD)
--- NOTE | 2017-09-30 14:32 | Cardiology Consultation ---
Cardiology Consultation Date of Consultation: Sep 30, 2017. Requesting Physician: Dr. Mora Reason for Consultation: SOB Pt evaluation today including: conversation w/ patient, physical exam, lab review, review of studies, review of inpatient medication list History of Present Illness This is a very pleasant 86-year-old woman who has a history of dyspnea on exertion as well as palpitations. She has had intermittent palpitations in the past however evaluation has not disclosed an arrhythmia although I believe the actual episodes were not recorded. On one occasion we were able to document atrial fibrillation on May 08, 2012. On that electrocardiogram her heart rate is 78 beats per minute, her rate controlled in part due to already being on metoprolol. She was started on Pradaxa that day and in followup May 22, 2012 she was back in sinus rhythm. An echocardiogram was also done which was unremarkable. She reported intermittent episodes of palpitations, these were not terribly bothersome to her and she did not have hemodynamic symptoms such as lightheadedness, presyncope or syncope. She does not have chest discomfort. She believes that she had dyspnea on exertion (climbing steps) the day she presented to your office in atrial fibrillation and that would be consistent with the arrhythmia causing the shortness of breath. She did have a stress echo done on 06/28/2013, this showed a good exercise tolerance of 6 minutes and 5 seconds, she achieved 86% of her predicted maximal heart rate and had no ischemia. She was in sinus rhythm during that test. We had discussed maintenance of sinus rhythm however due to minimal symptoms we treated her with rate control and anticoagulation. She had been doing very well with that regimen with very good control of her symptoms and not a lot of documentation of her arrhythmia. She was admitted to the hospital on 05/30/2014 where she had a elective left carotid endarterectomy for 90% stenosis and then the next morning had several hours of chest discomfort. Evaluation of the chest discomfort was negative and although she could have coronary artery disease it was unlikely that her discomfort was caused by coronary artery disease and no further evaluation was done. During her hospitalization however she did have runs of PAT as well as some paroxysmal atrial fibrillation. We did adjust her rate controlling medicines slightly with an increase in metoprolol tartrate from 25 mg twice a day to 3 times a day. She also had an emergency room visit at the end of January 2015 for rapid heart rate. She reports feeling the rapid heart rate, but no symptoms of lightheadedness, dizziness or presyncope and no chest discomfort. By the time she got to the emergency room the episode evidently had resolved and no abnormality was identified. She actually went in by ambulance and she thinks the episode might have lasted about 0.5 hour. She does not recall having this particular feeling before and it seems different than when she is in atrial fibrillation at which time she is really not aware of the arrhythmia. We did increase her metoprolol to 100 mg daily. She has been observed to have predominantly systolic hypertension in the past. She has not had difficultly with CHF in the past. She presents with FUENTES, PND and cough. She has not been able to sleep well for several nights due to SOB. She feels better since admission but still not back to normal. Past Medical/Surgical History (1) Hypertension (2) Atrial fibrillation (3) History of appendectomy Family History FHx: heart disease FHx: hypertension Social History Smoking Status: Never Smoker History of Alcohol Use: No Review of Systems Constitutional: No fever, No weight loss, No weakness Respiratory: + see HPI, + shortness of breath, + dyspnea on exertion, No cough , No wheezing Cardiac: + see HPI, + palpitations, No chest pain Abdomen: No pain, No nausea, No vomiting, No diarrhea, No GI bleeding Female : No problem reported Neurologic: No paralysis, No weakness, No numbness/tingling, No balance problems Heme: No abnormal bleeding/bruising, No clotting problems Endo: No fatigue Skin: No problem reported All Other Systems: Reviewed and Negative Allergies Coded Allergies: Morphine (Verified Allergy, Unknown, UNKNOWN, 09/30/17) Zolpidem (Verified Allergy, Unknown, UNKNOWN, 09/30/17) Medications Current Inpatient Medications Medications (Trade) Dose Ordered Sig/Mateo Route Start Time Stop Time Status Last Admin Dose Admin Amlodipine Besylate (Norvasc Tab) 5 mg DAILY PO 09/30/17 09:00 10/30/17 08:59 09/30/17 08:51 5 MG Aspirin (Ecotrin Tab) 81 mg DAILY PO 09/30/17 09:00 10/30/17 08:59 09/30/17 08:50 81 MG Dabigatran (Pradaxa Cap) 75 mg BID PO 09/30/17 09:00 10/30/17 08:59 09/30/17 08:51 75 MG Donepezil HCl (Aricept Tab) 5 mg QPM PO 09/30/17 21:00 10/30/17 20:59 Levothyroxine Sodium (Synthroid Tab) 125 mcg DAILYBB PO 09/30/17 09:00 10/30/17 08:59 09/30/17 08:50 125 MCG Losartan Potassium (coZAAR TAB) 50 mg BID PO 09/30/17 09:00 10/30/17 08:59 09/30/17 08:51 50 MG Metoprolol Tartrate (Lopressor Tab) 25 mg Q8 PO 09/30/17 14:00 10/30/17 13:59 Simvastatin (Zocor Tab) 20 mg HS PO 09/30/17 21:00 10/30/17 20:59 Magnesium Oxide (Mag-Ox Tab) 200 mg DAILY PO 09/30/17 09:00 10/30/17 08:59 09/30/17 08:50 200 MG Acetaminophen (Tylenol Tab) 650 mg Q4H PRN PO 09/30/17 06:45 10/30/17 06:44 Al Hydrox/Mg Hydrox/Simethicone (Maalox Max Susp) 15 ml Q4H PRN PO 09/30/17 06:45 10/30/17 06:44 Magnesium Hydroxide (Milk Of Magnesia Susp) 30 ml Q12H PRN PO 09/30/17 06:45 10/30/17 06:44 Ondansetron HCl (Zofran Inj) 4 mg Q6H PRN IV 09/30/17 06:45 10/30/17 06:44 Polyethylene (Miralax Powder Packet) 17 gm DAILY PRN PO 09/30/17 06:45 10/30/17 06:44 Miscellaneous (Iv Fluids Completed) 1 ea PRN PRN N/A 09/30/17 07:00 09/30/18 06:59 Furosemide 40 mg/ Syringe 4 ml @ 4 mls/min BID IV 09/30/17 21:00 10/30/17 20:59 Physical Exam Vital Signs Past 12 Hours Date Time Temp Pulse Resp B/P (MAP) Pulse Ox O2 Delivery O2 Flow Rate FiO2 09/30/17 11:43 36.7 64 16 155/59 (91) 97 Nasal Cannula 3.0 09/30/17 08:16 36.4 58 18 173/61 (98) 99 Nasal Cannula 3.0 09/30/17 07:15 99 Nasal Cannula 3.0 09/30/17 06:38 57 19 99 Nasal Cannula 3.0 09/30/17 06:31 174/93 09/30/17 06:21 87 Room Air 09/30/17 06:19 192/90 09/30/17 06:08 60 21 09/30/17 05:38 63 19 98 Nasal Cannula 3.0 09/30/17 05:18 65 09/30/17 05:16 36.9 71 20 197/73 88 Room Air 09/30/17 05:16 89 Room Air 09/30/17 05:13 197/73 Constitutional: General Apperance: heathly-appearing Level of Distress: NAD Psychiatric: Mental Status: active & alert Head: normocephalic Eyes: EOM: EOMI ENMT: normal ENT inspection, hearing grossly normal Neck: supple, no masses Lungs: Respiratory effort: no dyspnea, good air movement Auscultation: no wheezing, rales/crackles on the left, rales/crackles on the right Cardiovascular: Heart Auscultation: RRR, no murmurs, no rubs, no gallops Peripheral Pulses: Bruits: none appreciated Abdomen: Bowel Sounds: normal Inspection & Palpation: soft, no tenderness, guarding & rebound, no masses Musculoskeletal: normal strength (5/5 throughout) Extremities: no edema Neurologic: Cranial Nerves: grossly intact Sensation: grossly intact Data Laboratory Results: Last 24 Hours Test 09/30/17 05:36 09/30/17 10:35 White Blood Count 6.08 K/uL Red Blood Count 3.25 M/uL Hemoglobin 9.7 g/dL Hematocrit 30.1 % Mean Corpuscular Volume 92.6 fL Mean Corpuscular Hemoglobin 29.8 pg Mean Corpuscular Hemoglobin Concent 32.2 g/dl Platelet Count 169 K/uL Mean Platelet Volume 10.3 fL Neutrophils (%) (Auto) 69.7 % Lymphocytes (%) (Auto) 16.9 % Monocytes (%) (Auto) 8.7 % Eosinophils (%) (Auto) 3.8 % Basophils (%) (Auto) 0.7 % Neutrophils # (Auto) 4.24 K/uL Lymphocytes # (Auto) 1.03 K/uL Monocytes # (Auto) 0.53 K/uL Eosinophils # (Auto) 0.23 K/uL Basophils # (Auto) 0.04 K/uL RDW Standard Deviation 47.0 fL RDW Coefficient of Variation 14.0 % Immature Granulocyte % (Auto) 0.2 % Immature Granulocyte # (Auto) 0.01 K/uL Sodium Level 137 mmol/L 140 mmol/L Potassium Level mmol/L 4.4 mmol/L Chloride Level 109 mmol/L 106 mmol/L Carbon Dioxide Level 26 mmol/L 29 mmol/L Anion Gap 2.0 mmol/L 5.0 mmol/L Blood Urea Nitrogen 37 mg/dl 36 mg/dl Creatinine 1.73 mg/dl 1.67 mg/dl Est Creatinine Clear Calc Drug Dose 24.2 ml/min 25.0 ml/min Estimated GFR () 30.0 31.3 Estimated GFR (Non- 25.9 27.0 BUN/Creatinine Ratio 21.5 21.6 Random Glucose 95 mg/dl 108 mg/dl Calcium Level 8.7 mg/dl 8.9 mg/dl Total Bilirubin 0.6 mg/dl Aspartate Amino Transf (AST/SGOT) U/L Alanine Aminotransferase (ALT/SGPT) 26 U/L Alkaline Phosphatase 52 U/L Troponin I < 0.015 ng/ml < 0.015 ng/ml Pro-B-Type Natriuretic Peptide 2715 pg/ml Total Protein 6.8 gm/dl Albumin 3.1 gm/dl Globulin 3.7 gm/dl Albumin/Globulin Ratio 0.8 Imaging: CXR: Consistent with CHF or pneumonic process EKG: Sinus rhythm, no acute change Telemetry reviewed: SR and SB, no AF Echo Pending Assessment & Plan 1. SOB: Agree she seems to be in some degree of CHF and this is the most likely cause of her shortness of breath. 2. CHF: Probably diastolic in nature but there is no recent echo, it was done today and results are pending. Cardiac enzymes have been negative and ECG without acute change, suspect this was not due to an ischemic event. Agree with diuresis. 3. AF: She has what has seemed to be relatively infrequent PAF in the past, currently she is in SR. I would continue anticoagulation but her rhythm probably did not contribute to her presentation. 4. Hypertension: Her BP tends to run high, and is up significantly here. She is on fairly high doses of medications, but may need more. 5. CKD: Her creatinine has been mildly elevated for some time, but now it is higher. This could be a result of her CHF or a cause of it. We will need to monitor this as she is diuresed. Thank you for allowing me to participate in her care.
[2017-09-30] MEDS: METOPROLOL TARTRATE 25 MG TAB PO SCH ×2 (15:06→22:00)
--- NOTE | 2017-09-30 16:41 | ECHOCARDIOGRAM REPORT ---
*NOTICE TO RECEIVING LIBERTARIAN AGENCY This information is strictly Confidential and protected under [place] law. [place] law prohibits you from making any further disclosure of this information unless further disclosure is expressly permitted by the written consent of the person to whom it pertains or is authorized by law. A general authorization for the release of medical or other information is not sufficient for this purpose. Hospital accepts no responsibility if the information is made available to any other person, INCLUDING THE PATIENT. Interpretation Summary * Name: ONIEL ISLAS Study Date: 09/30/2017 09:22 AM BP: 173/61 mmHg * Patient Location: [facility]\S\N285\S\1 HR: 58 * : 1930 (M/d/yyyy) Gender: Female Height: 67 in * Age: 86 yrs Ethnicity: CA Weight: 171 lb * Ordering Physician: Darruis Mora * Referring Physician: Self, Referred * Performed By: Nury Espinal RDCS * * Reason For Study: CHF * BSA: 1.9 m2 * -- Conclusions -- * 1. Normal LV size. Mild concentric LVH. * 2. Normal LV systolic function. LVEF 60-65%. No regional wall motion abnormalities. Grade 2 diastolic dysfunction. * 3. Normal RV size and function. * 4. Severe biatrial enlargement. * 5. Mild mitral regurgitation. Aortic valve sclerosis without stenosis. * 6. Normal estimated PA and RA pressures. * 7. Compared with prior study on 05/09/2012: No significant change Procedure Details * A complete two-dimensional transthoracic echocardiogram was performed (2D, M-mode, Doppler and color flow Doppler). * A contrast injection of Definity was performed to improve assessment of LV function. * Contrast was injected into an intravenous site in the left arm. * One vial of Definity ultrasound contrast was diluted in normal saline to a total volume of 10 ml. A total of '3' ml of solution was administered during imaging. * Lot # [id number] of Definity utilized for procedure. * Expiration date OCT 06. * The attending nurse who injected the contrast agent was Emperatriz Herman RN. Left Ventricle * The left ventricle is grossly normal size. * There is mild concentric left ventricular hypertrophy. * Ejection Fraction = 60-65%. Right Ventricle * The right ventricle is not well visualized. * The right ventricle is grossly normal size. Atria * The left atrium is severely dilated. * The right atrium is severely dilated. * No ASD detected; PFO is not assessed. Mitral Valve * The mitral valve is grossly normal. * There is no mitral valve stenosis. * There is mild mitral regurgitation. Tricuspid Valve * There is trace tricuspid regurgitation. * PASP 30 mmHg Aortic Valve * The aortic valve opens well. * The aortic valve is trileaflet. * Aortic valve sclerosis mild, without significant aortic valvular stenosis. * No hemodynamically significant valvular aortic stenosis. * There is no significant aortic regurgitation. Pulmonic Valve * The pulmonary valve is inadequately visualized, but the Doppler data is adequate for interpretation. * Pulmonic stenosis is absent. * There is no significant pulmonary regurgitation. Great Vessels * The aortic root and proximal ascending aorta are normal sized. Pericardium/Pleural * There is no pericardial effusion. Great Vessels * There is no evidence of pulmonary hypertension. The PA systolic pressure is less than 36 mmHg. * Normal inferior vena cava size and collapsability with sniff indicates a normal right atrial pressure of 3 mmHg Left Ventricular Diastolic Function * Diastolic dysfunction, Grade II (pseudonormalization pattern). MMode 2D Measurements and Calculations IVSd 1.3 cm LVIDd 3.1 cm LVIDs 2.0 cm LVPWd 1.6 cm IVS/LVPW 0.81 FS 35.8 % EDV(Teich) 39.3 ml ESV(Teich) 13.0 ml EF(Teich) 66.8 % EDV(cubed) 31.1 ml ESV(cubed) 8.2 ml EF(cubed) 73.5 % LV mass(C)d 152.4 grams LV mass(C)dI 80.6 grams/m\S\2 SV(Teich) 26.2 ml SI(Teich) 13.9 ml/m\S\2 SV(cubed) 22.9 ml SI(cubed) 12.1 ml/m\S\2 Ao root diam 2.5 cm Ao root area 5.0 cm\S\2 ACS 1.3 cm LA dimension 3.4 cm asc Aorta Diam 2.2 cm LA/Ao 1.3 LVOT diam 1.7 cm LVOT area 2.3 cm\S\2 LVAd ap4 28.8 cm\S\2 LVLd ap4 7.5 cm EDV(MOD-sp4) 89.4 ml EDV(sp4-el) 94.0 ml LVAs ap4 18.0 cm\S\2 LVLs ap4 6.5 cm ESV(MOD-sp4) 40.6 ml ESV(sp4-el) 42.2 ml EF(MOD-sp4) 54.6 % EF(sp4-el) 55.1 % LVAd ap2 24.8 cm\S\2 LVLd ap2 7.0 cm EDV(MOD-sp2) 69.0 ml EDV(sp2-el) 74.3 ml LVAs ap2 14.4 cm\S\2 LVLs ap2 6.3 cm ESV(MOD-sp2) 27.0 ml ESV(sp2-el) 27.9 ml EF(MOD-sp2) 60.8 % EF(sp2-el) 62.4 % LVLd %diff -6.56 % EDV(MOD-bp) 80.4 ml LVLs %diff -3.29 % ESV(MOD-bp) 33.1 ml EF(MOD-bp) 58.9 % SV(MOD-sp4) 48.8 ml SI(MOD-sp4) 25.8 ml/m\S\2 SV(MOD-sp2) 41.9 ml SI(MOD-sp2) 22.2 ml/m\S\2 SV(MOD-bp) 47.4 ml SI(MOD-bp) 25.0 ml/m\S\2 SV(sp4-el) 51.8 ml SI(sp4-el) 27.4 ml/m\S\2 SV(sp2-el) 46.4 ml SI(sp2-el) 24.5 ml/m\S\2 Doppler Measurements and Calculations MV E max emily 120.8 cm/sec MV A max emily 63.1 cm/sec MV E/A 1.9 MV dec time 0.21 sec Ao V2 max 154.2 cm/sec Ao max PG 9.5 mmHg Ao max PG (full) 4.0 mmHg SAMMIE(V,A) 1.8 cm\S\2 SAMMIE(V,D) 1.8 cm\S\2 LV V1 max PG 5.5 mmHg LV V1 max 117.1 cm/sec PA V2 max 106.1 cm/sec PA max PG 4.5 mmHg PA acc slope 423.5 cm/sec\S\2 PA acc time 0.15 sec TR max emily 258.9 cm/sec PA pr(Accel) 10.3 mmHg
[2017-09-30 16:52] LABS: BLOOD UREA NITROGEN 43 mg/dl (7-18); CALCIUM 8.5 mg/dl (8.5-10.1); CARBON DIOXIDE 27 mmol/L (21-32); CREATININE 1.83 mg/dl (0.60-1.20); GLUCOSE 98 mg/dl (70-99); POTASSIUM 4.6 mmol/L (3.5-5.1); SODIUM 138 mmol/L (136-145)
[2017-09-30 16:58] LABS: TRANSFERRIN 233 mg/dl (200-360)
[2017-09-30] MEDS: DONEPEZIL HCL 5 MG TAB PO SCH (20:54)
[2017-09-30] MEDS: SIMVASTATIN 20 MG TAB PO SCH (20:55)
[2017-09-30] MEDS: FUROSEMIDE INJ 40 MG in SYRINGE 0 ML IV SCH (20:55)
[2017-10-01 05:03] VITALS: BP 155/55; PULSE 65; TEMP 36.6; O2SAT 98
[2017-10-01 06:21] LABS: BASO % 0.6 %; BASO ABS # 0.04 K/uL (0-0.2); HEMATOCRIT 29.5 % (37-47); HEMOGLOBIN 9.6 g/dL (12.0-16.0); IG# 0.01 K/uL (0.00-0.02); LYMPH % 15.6 %; LYMPH ABS # 1.04 K/uL (1.2-3.4); MEAN CELL VOLUME 91.9 fL (80-100); MEAN CORPUSCULAR HEMOGLOBIN 29.9 pg (25-34); MEAN CORPUSCULAR HGB CONC 32.5 g/dl (32-36); MONO % 10.3 %; MONO ABS # 0.69 K/uL (0.11-0.59); NEUT % 70.4 %; NEUT ABS # 4.69 K/uL (1.4-6.5); PLATELET COUNT 238 K/uL (130-400); RED CELL DISTRIBUTION WIDTH CV 13.7 % (11.5-14.5); RED CELL DISTRIBUTION WIDTH SD 45.6 fL (36.4-46.3); WHITE BLOOD COUNT 6.67 K/uL (4.8-10.8)
[2017-10-01] MEDS: LEVOTHYROXINE 125 MCG TAB PO SCH (06:31)
[2017-10-01] MEDS: METOPROLOL TARTRATE 25 MG TAB PO SCH ×4 (06:31→22:36)
[2017-10-01 06:36] VITALS: BP 145/61; PULSE 61
[2017-10-01 06:54] LABS: ALBUMIN 3.1 gm/dl (3.4-5.0); CALCIUM 8.5 mg/dl (8.5-10.1); CREATININE 1.98 mg/dl (0.60-1.20); POTASSIUM 4.2 mmol/L (3.5-5.1)
[2017-10-01 06:57] LABS: TOTAL PROTEIN 6.6 gm/dl (6.4-8.2)
[2017-10-01 07:38] VITALS: BP 147/81; PULSE 56; TEMP 36.5; O2SAT 100
[2017-10-01] MEDS: ASPIRIN 81 MG ECTAB PO SCH (08:50)
[2017-10-01] MEDS: LOSARTAN POTASSIUM 50 MG TAB PO SCH ×2 (08:50→20:30)
[2017-10-01] MEDS: FUROSEMIDE INJ 40 MG in SYRINGE 0 ML IV SCH ×2 (08:51→20:31)
[2017-10-01] MEDS: MAGNESIUM OXIDE 400 MG TAB PO SCH (08:51)
[2017-10-01] MEDS: DABIGATRAN ELEXILATE 75 MG CAP PO SCH ×2 (08:51→20:30)
[2017-10-01] MEDS: AMLODIPINE BESYLATE 5 MG TAB PO SCH (08:51)
--- NOTE | 2017-10-01 10:42 | Cardiology Follow-Up ---
Subjective Date of Service: Oct 01, 2017. Pt evaluation today including: conversation w/ patient, physical exam, lab review, review of studies, review of inpatient medication list History of Present Illness This is a very pleasant 86-year-old woman who has a history of dyspnea on exertion as well as palpitations. She has had intermittent palpitations in the past however evaluation has not disclosed an arrhythmia although I believe the actual episodes were not recorded. On one occasion we were able to document atrial fibrillation on May 08, 2012. On that electrocardiogram her heart rate is 78 beats per minute, her rate controlled in part due to already being on metoprolol. She was started on Pradaxa that day and in followup May 22, 2012 she was back in sinus rhythm. An echocardiogram was also done which was unremarkable. She reported intermittent episodes of palpitations, these were not terribly bothersome to her and she did not have hemodynamic symptoms such as lightheadedness, presyncope or syncope. She does not have chest discomfort. She believes that she had dyspnea on exertion (climbing steps) the day she presented to your office in atrial fibrillation and that would be consistent with the arrhythmia causing the shortness of breath. She did have a stress echo done on 06/28/2013, this showed a good exercise tolerance of 6 minutes and 5 seconds, she achieved 86% of her predicted maximal heart rate and had no ischemia. She was in sinus rhythm during that test. We had discussed maintenance of sinus rhythm however due to minimal symptoms we treated her with rate control and anticoagulation. She had been doing very well with that regimen with very good control of her symptoms and not a lot of documentation of her arrhythmia. She was admitted to the hospital on 05/30/2014 where she had a elective left carotid endarterectomy for 90% stenosis and then the next morning had several hours of chest discomfort. Evaluation of the chest discomfort was negative and although she could have coronary artery disease it was unlikely that her discomfort was caused by coronary artery disease and no further evaluation was done. During her hospitalization however she did have runs of PAT as well as some paroxysmal atrial fibrillation. We did adjust her rate controlling medicines slightly with an increase in metoprolol tartrate from 25 mg twice a day to 3 times a day. She also had an emergency room visit at the end of January 2015 for rapid heart rate. She reports feeling the rapid heart rate, but no symptoms of lightheadedness, dizziness or presyncope and no chest discomfort. By the time she got to the emergency room the episode evidently had resolved and no abnormality was identified. She actually went in by ambulance and she thinks the episode might have lasted about 0.5 hour. She does not recall having this particular feeling before and it seems different than when she is in atrial fibrillation at which time she is really not aware of the arrhythmia. We did increase her metoprolol to 100 mg daily. She has been observed to have predominantly systolic hypertension in the past. She has not had difficultly with CHF in the past. She presented with FUENTES, PND and cough. She was not able to sleep well for several nights due to SOB. She feels better since admission and diuresis and seems back to normal. Social History Smoking Status: Never Smoker History of Alcohol Use: No Review of Systems Respiratory: + see HPI, No cough, No wheezing, No shortness of breath, No dyspnea on exertion Cardiac: + see HPI, + palpitations, No chest pain Medications Cardiovascular: Item Value Date Time Simvastatin 20 mg 09/30/17 2100 (Zocor Tab) HS/PO 09/30/17 205 Metoprolol 25 mg 09/30/17 1400 Tartrate Q8/PO 10/01/17 0631 (Lopressor Tab) Amlodipine 5 mg 09/30/17 0900 Besylate DAILY/PO 10/01/17 0851 (Norvasc Tab) Aspirin 81 mg 09/30/17 0900 (Ecotrin Tab) DAILY/PO 10/01/17 0850 Dabigatran 75 mg 09/30/17 0900 (Pradaxa Cap) BID/PO 10/01/17 0851 Losartan Potassium 50 mg 09/30/17 0900 (coZAAR TAB) BID/PO 10/01/17 0850 Objective Vital Signs Past 12 Hours Date Time Temp Pulse Resp B/P (MAP) Pulse Ox O2 Delivery O2 Flow Rate FiO2 10/01/17 08:00 Nasal Cannula 2.0 10/01/17 07:38 36.5 56 18 147/81 (103) 100 Nasal Cannula 3.0 10/01/17 06:36 61 145/61 (89) 10/01/17 05:03 36.6 65 18 155/55 (88) 98 3.0 10/01/17 04:00 Nasal Cannula 2.0 10/01/17 00:00 Nasal Cannula 2.0 09/30/17 23:27 36.6 57 20 170/52 (91) 98 3.0 Last Recorded Weight-Kilograms: 74.100 Intake & Output 8-Hour Column 10/01/17 10/01/17 10/02/17 15:59 23:59 07:59 Output Total 0 ml Balance 0 ml 24-Hour Column 10/02/17 07:59 Output Total 0 ml Balance 0 ml Physical Exam Constitutional: General Apperance: heathly-appearing Level of Distress: NAD Lungs: Respiratory effort: no dyspnea, good air movement Auscultation: breath sounds normal, no wheezing Cardiovascular: Heart Auscultation: RRR, no murmurs, no rubs, no gallops Peripheral Pulses: Bruits: none appreciated Extremities: no edema Data Laboratory Results: Last 24 Hours Test 09/30/17 10:35 09/30/17 16:10 09/30/17 16:11 09/30/17 16:20 Sodium Level 140 mmol/L 138 mmol/L Potassium Level 4.4 mmol/L 4.6 mmol/L Chloride Level 106 mmol/L 107 mmol/L Carbon Dioxide Level 29 mmol/L 27 mmol/L Anion Gap 5.0 mmol/L 4.0 mmol/L Blood Urea Nitrogen 36 mg/dl 43 mg/dl Creatinine 1.67 mg/dl 1.83 mg/dl Est Creatinine Clear Calc Drug Dose 25.0 ml/min 22.8 ml/min Estimated GFR () 31.3 28.1 Estimated GFR (Non- 27.0 24.2 BUN/Creatinine Ratio 21.6 23.3 Random Glucose 108 mg/dl 98 mg/dl Calcium Level 8.9 mg/dl 8.5 mg/dl Troponin I < 0.015 ng/ml < 0.015 ng/ml Iron Level 34 mcg/dl Total Iron Binding Capacity 270 mcg/dl Transferrin 233 mg/dl Transferrin % Saturation 10 % % Ferritin 21.5 ng/ml Vitamin B12 Level 598 pg/mL Folate 21.98 ng/mL Test 10/01/17 05:48 White Blood Count 6.67 K/uL Red Blood Count 3.21 M/uL Hemoglobin 9.6 g/dL Hematocrit 29.5 % Mean Corpuscular Volume 91.9 fL Mean Corpuscular Hemoglobin 29.9 pg Mean Corpuscular Hemoglobin Concent 32.5 g/dl Platelet Count 238 K/uL Mean Platelet Volume 10.0 fL Neutrophils (%) (Auto) 70.4 % Lymphocytes (%) (Auto) 15.6 % Monocytes (%) (Auto) 10.3 % Eosinophils (%) (Auto) 3.0 % Basophils (%) (Auto) 0.6 % Neutrophils # (Auto) 4.69 K/uL Lymphocytes # (Auto) 1.04 K/uL Monocytes # (Auto) 0.69 K/uL Eosinophils # (Auto) 0.20 K/uL Basophils # (Auto) 0.04 K/uL RDW Standard Deviation 45.6 fL RDW Coefficient of Variation 13.7 % Immature Granulocyte % (Auto) 0.1 % Immature Granulocyte # (Auto) 0.01 K/uL Sodium Level 139 mmol/L Potassium Level 4.2 mmol/L Chloride Level 106 mmol/L Carbon Dioxide Level 31 mmol/L Anion Gap 2.0 mmol/L Blood Urea Nitrogen 45 mg/dl Creatinine 1.98 mg/dl Est Creatinine Clear Calc Drug Dose 21.1 ml/min Estimated GFR () 25.5 Estimated GFR (Non- 22.0 BUN/Creatinine Ratio 22.8 Random Glucose 91 mg/dl Calcium Level 8.5 mg/dl Magnesium Level 2.5 mg/dl Total Bilirubin 1.0 mg/dl Aspartate Amino Transf (AST/SGOT) 19 U/L Alanine Aminotransferase (ALT/SGPT) 22 U/L Alkaline Phosphatase 53 U/L Total Protein 6.6 gm/dl Albumin 3.1 gm/dl Globulin 3.5 gm/dl Albumin/Globulin Ratio 0.9 Imaging: Her echocardiogram shows normal left ventricular systolic function as well as normal left ventricular size. She does have mild concentric left ventricular hypertrophy and she does have some degree of diastolic dysfunction. She has severe biatrial enlargement, mild MR and aortic valve sclerosis without stenosis. Telemetry reviewed: Sinus rhythm and sinus bradycardia Assessment and Plan 1. SOB: Agree she had some degree of CHF and this was the most likely cause of her shortness of breath, that has improved with diuresis and she feels well currently. 2. CHF: Probably diastolic in nature, she does have some degree of diastolic dysfunction but her systolic function is normal. Cardiac enzymes have been negative and ECG without acute change, suspect this was not due to an ischemic event. I am concerned that perhaps her renal function deteriorating was a partial cause of this presentation. 3. AF: She has what has seemed to be relatively infrequent PAF in the past, currently she is in SR. I would continue anticoagulation but her rhythm probably did not contribute to her presentation. 4. Hypertension: Her BP tends to run high, and is up significantly here. She is on fairly high doses of medications, but may need more over the long run. This might contribute to her diastolic dysfunction (she does have some LVH but not severe) as well as perhaps her kidney function deteriorating. 5. CKD: Her creatinine has been mildly elevated for some time, but now it is higher. This could be a result of her CHF, however normally if that is the case with diuresis it improves and her is has not, it has worsened. I am going to hold her diuretic now as she appears to be you hydrated (she did get it this morning) and perhaps she needs an evaluation of her kidney function. Thank you for allowing me to participate in her care.
[2017-10-01 12:46] VITALS: BP 157/73; PULSE 56; TEMP 36.6; O2SAT 99
[2017-10-01 16:12] VITALS: BP 167/65; PULSE 65; TEMP 36.7; O2SAT 97
[2017-10-01] MEDS: DONEPEZIL HCL 5 MG TAB PO SCH (20:31)
[2017-10-01] MEDS: SIMVASTATIN 20 MG TAB PO SCH (20:32)
[2017-10-01 21:01] VITALS: BP 163/67; PULSE 71; TEMP 36.9; O2SAT 90
--- NOTE | 2017-10-01 22:30 | Progress Note ---
Subjective Date of Service: Oct 01, 2017. Subjective Pt evaluation today including: conversation w/ patient 86 yo female presents reports feeling well today. Patient denies any SOB today. Patient denies any chest pain, nausea, vomiting. Problem List Medical Problems: (1) Bronchitis Status: Acute (2) Congestive heart failure Status: Acute (3) Hypoxia Status: Acute (4) Weakness Status: Acute Review of Systems Constitutional: No fever, No chills Eyes: No worsening of vision ENT: No hearing loss Respiratory: No cough Cardiac: No chest pain Abdomen: No see HPI, No pain Musculoskeletal: No joint pain Neurologic: No memory loss Psychiatric: No depression symptoms Heme: No abnormal bleeding/bruising Endo: No fatigue Skin: No rash All Other Systems: Reviewed and Negative Medications Current Inpatient Medications Medications (Trade) Dose Ordered Sig/Mateo Route Start Time Stop Time Status Last Admin Dose Admin Amlodipine Besylate (Norvasc Tab) 5 mg DAILY PO 09/30/17 09:00 10/30/17 08:59 10/01/17 08:51 5 MG Aspirin (Ecotrin Tab) 81 mg DAILY PO 09/30/17 09:00 10/30/17 08:59 10/01/17 08:50 81 MG Dabigatran (Pradaxa Cap) 75 mg BID PO 09/30/17 09:00 10/30/17 08:59 10/01/17 20:30 75 MG Donepezil HCl (Aricept Tab) 5 mg QPM PO 09/30/17 21:00 10/30/17 20:59 10/01/17 20:31 5 MG Levothyroxine Sodium (Synthroid Tab) 125 mcg DAILYBB PO 09/30/17 09:00 10/30/17 08:59 10/01/17 06:31 125 MCG Losartan Potassium (coZAAR TAB) 50 mg BID PO 09/30/17 09:00 10/30/17 08:59 10/01/17 20:30 50 MG Metoprolol Tartrate (Lopressor Tab) 25 mg Q8 PO 09/30/17 14:00 10/30/17 13:59 10/01/17 15:43 25 MG Simvastatin (Zocor Tab) 20 mg HS PO 09/30/17 21:00 10/30/17 20:59 10/01/17 20:32 20 MG Magnesium Oxide (Mag-Ox Tab) 200 mg DAILY PO 09/30/17 09:00 10/30/17 08:59 10/01/17 08:51 200 MG Acetaminophen (Tylenol Tab) 650 mg Q4H PRN PO 09/30/17 06:45 10/30/17 06:44 10/01/17 20:35 650 MG Al Hydrox/Mg Hydrox/Simethicone (Maalox Max Susp) 15 ml Q4H PRN PO 09/30/17 06:45 10/30/17 06:44 Magnesium Hydroxide (Milk Of Magnesia Susp) 30 ml Q12H PRN PO 09/30/17 06:45 10/30/17 06:44 Ondansetron HCl (Zofran Inj) 4 mg Q6H PRN IV 09/30/17 06:45 10/30/17 06:44 Polyethylene (Miralax Powder Packet) 17 gm DAILY PRN PO 09/30/17 06:45 10/30/17 06:44 Miscellaneous (Iv Fluids Completed) 1 ea PRN PRN N/A 09/30/17 07:00 09/30/18 06:59 Furosemide 40 mg/ Syringe 4 ml @ 4 mls/min BID IV 09/30/17 21:00 10/30/17 20:59 10/01/17 08:51 4 MLS/MIN Objective Vital Signs Date Time Temp Pulse Resp B/P (MAP) Pulse Ox O2 Delivery O2 Flow Rate FiO2 10/01/17 21:01 36.9 71 18 163/67 (99) 90 Room Air 10/01/17 16:12 36.7 65 20 167/65 (99) 97 2.0 10/01/17 16:00 Nasal Cannula 2.0 10/01/17 12:46 36.6 56 14 157/73 (101) 99 Nasal Cannula 2.0 10/01/17 12:00 Nasal Cannula 2.0 10/01/17 08:00 Nasal Cannula 2.0 10/01/17 07:38 36.5 56 18 147/81 (103) 100 Nasal Cannula 3.0 10/01/17 06:36 61 145/61 (89) 10/01/17 05:03 36.6 65 18 155/55 (88) 98 3.0 10/01/17 04:00 Nasal Cannula 2.0 10/01/17 00:00 Nasal Cannula 2.0 09/30/17 23:27 36.6 57 20 170/52 (99) 98 3.0 Physical Exam Comments: General Appearance: WD/WN, no apparent distress Eyes: PERRL, EOMI ENT: hearing grossly normal, pharynx normal Neck: supple, no JVD Respiratory/Chest: no respiratory distress, no accessory muscle use, on RA, clear lungs Cardiovascular: regular rate, rhythm, systolic murmur noted Abdomen: normal bowel sounds, non tender, soft Extremities: non-tender, no pedal edema, no calf tenderness Neurologic/Psychiatric: alert, normal mood/affect, oriented x 3 Skin: normal color, warm/dry Laboratory Results Last 24 Hours Test 10/01/17 05:48 White Blood Count 6.67 K/uL Red Blood Count 3.21 M/uL Hemoglobin 9.6 g/dL Hematocrit 29.5 % Mean Corpuscular Volume 91.9 fL Mean Corpuscular Hemoglobin 29.9 pg Mean Corpuscular Hemoglobin Concent 32.5 g/dl Platelet Count 238 K/uL Mean Platelet Volume 10.0 fL Neutrophils (%) (Auto) 70.4 % Lymphocytes (%) (Auto) 15.6 % Monocytes (%) (Auto) 10.3 % Eosinophils (%) (Auto) 3.0 % Basophils (%) (Auto) 0.6 % Neutrophils # (Auto) 4.69 K/uL Lymphocytes # (Auto) 1.04 K/uL Monocytes # (Auto) 0.69 K/uL Eosinophils # (Auto) 0.20 K/uL Basophils # (Auto) 0.04 K/uL RDW Standard Deviation 45.6 fL RDW Coefficient of Variation 13.7 % Immature Granulocyte % (Auto) 0.1 % Immature Granulocyte # (Auto) 0.01 K/uL Sodium Level 139 mmol/L Potassium Level 4.2 mmol/L Chloride Level 106 mmol/L Carbon Dioxide Level 31 mmol/L Anion Gap 2.0 mmol/L Blood Urea Nitrogen 45 mg/dl Creatinine 1.98 mg/dl Est Creatinine Clear Calc Drug Dose 21.1 ml/min Estimated GFR () 25.5 Estimated GFR (Non- 22.0 BUN/Creatinine Ratio 22.8 Random Glucose 91 mg/dl Calcium Level 8.5 mg/dl Magnesium Level 2.5 mg/dl Total Bilirubin 1.0 mg/dl Aspartate Amino Transf (AST/SGOT) 19 U/L Alanine Aminotransferase (ALT/SGPT) 22 U/L Alkaline Phosphatase 53 U/L Total Protein 6.6 gm/dl Albumin 3.1 gm/dl Globulin 3.5 gm/dl Albumin/Globulin Ratio 0.9 Assessment and Plan 86 y/o F Hx PAF, HTN, CKD III, hypothyroid, anemia. Presents with SOB which woke her up from sleep. She reports she has been SOB over the past few days and has had difficulty with any exertion. She also states she has had difficulty lying flat and sleeping as a result. She denies CP, a productive cough, fevers. Initial imaging and clinical exam are consistent with acute CHF. CHF - possibly acute - - Echo ordered, Lasix provided - received 40mg IV in ER - ordered 40 mg IV BID as pt still with shortness of breath, +JVD and edema in BLE. Creatinine slightly improved with diuresis, so likely volume overload - HOLD HCTZ/Triamterene, continue Losartan -Patient ambulated today and maintained an 02 sat above 92% - CXR reviewed:. Bilateral mixed interstitial and alveolar opacities within a mid and lower lung zone predominant distribution are suspicious for pneumonia with pulmonary edema thought to be less likely. Small bilateral pleural effusions. Cardiomegaly. Afebrile, no signs of acute respiratory infection however monitor for possible involvement - if not improving with diuretics alone consider pneumonia History of CAD - markers negative - cont ASA, statin CKD III - creat slightly worsened with diuresis. currently 1.8 - Baseline appears to be around ~1.5 Anemia - Hb is at baseline. PAF - currently sinus - anticoagulated with Pradaxa and Metoprolol. Hypothyroid - cont Synthroid DVT ppx: pradaxa CODE: Full code Disposition: From the [place], assisted living, to assist with dc planning. Continued [facility] stay due to: other Discharge planning: uncertain
[2017-10-02] VITALS (8 sets, daily range): BP systolic 131–155; BP diastolic 58–78; PULSE 60–86; TEMP 36.4–36.9; O2SAT 94–97
[2017-10-02] MEDS: METOPROLOL TARTRATE 25 MG TAB PO SCH ×3 (06:25→21:50)
[2017-10-02] MEDS: LEVOTHYROXINE 125 MCG TAB PO SCH (06:25)
[2017-10-02 06:55] LABS: CALCIUM 7.9 mg/dl (8.5-10.1); CREATININE 2.15 mg/dl (0.60-1.20); POTASSIUM 3.9 mmol/L (3.5-5.1)
[2017-10-02] MEDS: FUROSEMIDE INJ 40 MG in SYRINGE 0 ML IV SCH (07:08)
[2017-10-02] MEDS: LOSARTAN POTASSIUM 50 MG TAB PO SCH ×2 (08:37→20:34)
[2017-10-02] MEDS: MAGNESIUM OXIDE 400 MG TAB PO SCH (08:37)
[2017-10-02] MEDS: ASPIRIN 81 MG ECTAB PO SCH (08:37)
[2017-10-02] MEDS: DABIGATRAN ELEXILATE 75 MG CAP PO SCH ×2 (08:38→20:35)
[2017-10-02] MEDS: AMLODIPINE BESYLATE 5 MG TAB PO SCH (08:38)
[2017-10-02] MEDS ORDERED: NURSING VERBAL MED ORDER ONE (10:00)
[2017-10-02] MEDS ORDERED: LACTATED RINGER'S 1000ML 1,000 ML IV SCH (10:45)
--- NOTE | 2017-10-02 13:29 | Cardiology Follow-Up ---
Subjective Date of Service: Oct 02, 2017. Pt evaluation today including: conversation w/ patient, physical exam, lab review, review of studies, review of inpatient medication list History of Present Illness This is a very pleasant 86-year-old woman who has a history of dyspnea on exertion as well as palpitations. She has had intermittent palpitations in the past however evaluation has not disclosed an arrhythmia although I believe the actual episodes were not recorded. On one occasion we were able to document atrial fibrillation on May 08, 2012. On that electrocardiogram her heart rate is 78 beats per minute, her rate controlled in part due to already being on metoprolol. She was started on Pradaxa that day and in followup May 22, 2012 she was back in sinus rhythm. An echocardiogram was also done which was unremarkable. She reported intermittent episodes of palpitations, these were not terribly bothersome to her and she did not have hemodynamic symptoms such as lightheadedness, presyncope or syncope. She does not have chest discomfort. She believes that she had dyspnea on exertion (climbing steps) the day she presented to your office in atrial fibrillation and that would be consistent with the arrhythmia causing the shortness of breath. She did have a stress echo done on 06/28/2013, this showed a good exercise tolerance of 6 minutes and 5 seconds, she achieved 86% of her predicted maximal heart rate and had no ischemia. She was in sinus rhythm during that test. We had discussed maintenance of sinus rhythm however due to minimal symptoms we treated her with rate control and anticoagulation. She had been doing very well with that regimen with very good control of her symptoms and not a lot of documentation of her arrhythmia. She was admitted to the hospital on 05/30/2014 where she had a elective left carotid endarterectomy for 90% stenosis and then the next morning had several hours of chest discomfort. Evaluation of the chest discomfort was negative and although she could have coronary artery disease it was unlikely that her discomfort was caused by coronary artery disease and no further evaluation was done. During her hospitalization however she did have runs of PAT as well as some paroxysmal atrial fibrillation. We did adjust her rate controlling medicines slightly with an increase in metoprolol tartrate from 25 mg twice a day to 3 times a day. She also had an emergency room visit at the end of January 2015 for rapid heart rate. She reports feeling the rapid heart rate, but no symptoms of lightheadedness, dizziness or presyncope and no chest discomfort. By the time she got to the emergency room the episode evidently had resolved and no abnormality was identified. She actually went in by ambulance and she thinks the episode might have lasted about 0.5 hour. She does not recall having this particular feeling before and it seems different than when she is in atrial fibrillation at which time she is really not aware of the arrhythmia. We did increase her metoprolol to 100 mg daily. She has been observed to have predominantly systolic hypertension in the past. She has not had difficultly with CHF in the past. She presented with FUENTES, PND and cough. She was not able to sleep well for several nights due to SOB. She is feeling much better now with diuresis. Social History Smoking Status: Never Smoker History of Alcohol Use: No Review of Systems Respiratory: No cough Cardiac: No chest pain Medications Cardiovascular: Item Value Date Time Simvastatin 20 mg 09/30/17 2100 (Zocor Tab) HS/PO 10/01/172031 Metoprolol 25 mg 09/30/17 1400 Tartrate Q8/PO 10/02/17 0625 (Lopressor Tab) Amlodipine 5 mg 09/30/17 0900 Besylate DAILY/PO 10/02/17 0838 (Norvasc Tab) Aspirin 81 mg 09/30/17 0900 (Ecotrin Tab) DAILY/PO 10/02/17 0837 Dabigatran 75 mg 09/30/17 0900 (Pradaxa Cap) BID/PO 10/02/17 0838 Losartan Potassium 50 mg 09/30/17 0900 (coZAAR TAB) BID/PO 10/02/17 0837 Objective Vital Signs Past 12 Hours Date Time Temp Pulse Resp B/P (MAP) Pulse Ox O2 Delivery O2 Flow Rate FiO2 10/02/17 12:52 36.6 78 18 138/78 (98) 96 Room Air 10/02/17 08:00 Room Air 10/02/17 07:19 36.4 86 16 131/69 (89) 97 Room Air 10/02/17 06:23 75 146/74 (98) 94 10/02/17 05:56 36.8 62 17 137/62 (87) 97 Nasal Cannula 2.0 10/02/17 04:00 Room Air Last Recorded Weight-Kilograms: 72.900 Physical Exam Constitutional: General Apperance: heathly-appearing Level of Distress: NAD Lungs: Respiratory effort: no dyspnea, good air movement Auscultation: breath sounds normal, no wheezing Cardiovascular: Heart Auscultation: RRR, no murmurs, no rubs, no gallops Peripheral Pulses: Bruits: none appreciated Extremities: no edema Data Laboratory Results: Last 24 Hours Test 10/02/17 05:40 10/02/17 13:05 Sodium Level 138 mmol/L Potassium Level 3.9 mmol/L Chloride Level 102 mmol/L Carbon Dioxide Level 31 mmol/L Anion Gap 5.0 mmol/L Blood Urea Nitrogen 54 mg/dl Creatinine 2.15 mg/dl Est Creatinine Clear Calc Drug Dose 17.6 ml/min Estimated GFR () 23.1 Estimated GFR (Non- 19.9 BUN/Creatinine Ratio 25.0 Random Glucose 94 mg/dl Calcium Level 7.9 mg/dl Telemetry reviewed: Atrial fibrillation with a controlled heart rate Assessment and Plan 1. SOB: Agree she had some degree of CHF and this was the most likely cause of her shortness of breath, that has improved with diuresis and she feels well currently. 2. CHF: Probably diastolic in nature, she does have some degree of diastolic dysfunction but her systolic function is normal. Cardiac enzymes have been negative and ECG without acute change, suspect this was not due to an ischemic event. I am concerned that perhaps her renal function deteriorating was a partial cause of this presentation. 3. AF: She has what has seemed to be relatively infrequent PAF in the past, currently she is in AF with a controlled heart rate. I would continue anticoagulation but her rhythm probably did not contribute to her presentation. 4. Hypertension: Her BP tends to run high, and is up significantly here. She is on fairly high doses of medications, but may need more over the long run. This might contribute to her diastolic dysfunction (she does have some LVH but not severe) as well as perhaps her kidney function deteriorating. 5. CKD: Her creatinine has been mildly elevated for some time, but now it is higher. This could be a result of her CHF, however normally if that is the case with diuresis it improves and hers has not, it has worsened. Her diuretic is on hold.. Thank you for allowing me to participate in her care.
[2017-10-02 14:17] LABS: CREATININE 2.56 mg/dl (0.60-1.20)
--- NOTE | 2017-10-02 14:44 | Progress Note ---
Subjective Date of Service: Oct 02, 2017. Subjective Patient reports doing well. Patient however has significant short term memory loss, and she forgets the conversation once you leave the room. Spoke with daughter and update her on plan. Problem List Medical Problems: (1) Bronchitis Status: Acute (2) Congestive heart failure Status: Acute (3) Hypoxia Status: Acute (4) Weakness Status: Acute Review of Systems Constitutional: No fever, No chills Eyes: No worsening of vision ENT: No hearing loss Respiratory: No cough Cardiac: No chest pain Abdomen: No pain Musculoskeletal: No joint pain Neurologic: No paralysis Psychiatric: No depression symptoms Heme: No abnormal bleeding/bruising Endo: No fatigue Skin: No rash All Other Systems: Reviewed and Negative Medications Current Inpatient Medications Medications (Trade) Dose Ordered Sig/Mateo Route Start Time Stop Time Status Last Admin Dose Admin Amlodipine Besylate (Norvasc Tab) 5 mg DAILY PO 09/30/17 09:00 10/30/17 08:59 10/02/17 08:38 5 MG Aspirin (Ecotrin Tab) 81 mg DAILY PO 09/30/17 09:00 10/30/17 08:59 10/02/17 08:37 81 MG Dabigatran (Pradaxa Cap) 75 mg BID PO 09/30/17 09:00 10/30/17 08:59 10/02/17 20:35 75 MG Donepezil HCl (Aricept Tab) 5 mg QPM PO 09/30/17 21:00 10/30/17 20:59 10/02/17 20:34 5 MG Levothyroxine Sodium (Synthroid Tab) 125 mcg DAILYBB PO 09/30/17 09:00 10/30/17 08:59 10/03/17 06:13 125 MCG Losartan Potassium (coZAAR TAB) 50 mg BID PO 09/30/17 09:00 10/30/17 08:59 10/02/17 20:34 50 MG Metoprolol Tartrate (Lopressor Tab) 25 mg Q8 PO 09/30/17 14:00 10/30/17 13:59 10/03/17 06:13 25 MG Simvastatin (Zocor Tab) 20 mg HS PO 09/30/17 21:00 10/30/17 20:59 10/02/17 20:34 20 MG Magnesium Oxide (Mag-Ox Tab) 200 mg DAILY PO 09/30/17 09:00 10/30/17 08:59 10/02/17 08:37 200 MG Acetaminophen (Tylenol Tab) 650 mg Q4H PRN PO 09/30/17 06:45 10/30/17 06:44 10/01/17 20:35 650 MG Al Hydrox/Mg Hydrox/Simethicone (Maalox Max Susp) 15 ml Q4H PRN PO 09/30/17 06:45 10/30/17 06:44 Magnesium Hydroxide (Milk Of Magnesia Susp) 30 ml Q12H PRN PO 09/30/17 06:45 10/30/17 06:44 Ondansetron HCl (Zofran Inj) 4 mg Q6H PRN IV 09/30/17 06:45 10/30/17 06:44 Polyethylene (Miralax Powder Packet) 17 gm DAILY PRN PO 09/30/17 06:45 10/30/17 06:44 Miscellaneous (Iv Fluids Completed) 1 ea PRN PRN N/A 09/30/17 07:00 09/30/18 06:59 Objective Vital Signs Date Time Temp Pulse Resp B/P (MAP) Pulse Ox O2 Delivery O2 Flow Rate FiO2 10/02/17 12:52 36.6 78 18 138/78 (98) 96 Room Air 10/02/17 08:00 Room Air 10/02/17 07:19 36.4 86 16 131/69 (89) 97 Room Air 10/02/17 06:23 75 146/74 (98) 94 10/02/17 05:56 36.8 62 17 137/62 (87) 97 Nasal Cannula 2.0 10/02/17 04:00 Room Air 10/02/17 00:00 Room Air 10/02/17 00:00 36.9 60 16 138/58 (84) 96 Room Air 10/01/17 21:01 36.9 71 18 163/67 (99) 90 Room Air 10/01/17 20:00 Room Air 10/01/17 16:12 36.7 65 20 167/65 (99) 97 2.0 10/01/17 16:00 Nasal Cannula 2.0 Physical Exam Comments: General Appearance: WD/WN, no apparent distress Eyes: PERRL, EOMI ENT: hearing grossly normal, pharynx normal Neck: supple, no JVD Respiratory/Chest: no respiratory distress, no accessory muscle use, on RA, clear lungs Cardiovascular: regular rate, rhythm, systolic murmur noted Abdomen: normal bowel sounds, non tender, soft Extremities: non-tender, no pedal edema, no calf tenderness Neurologic/Psychiatric: alert, normal mood/affect, oriented x 3 Skin: normal color, warm/dry Laboratory Results Last 24 Hours Test 10/02/17 05:40 10/02/17 13:32 Sodium Level 138 mmol/L Potassium Level 3.9 mmol/L Chloride Level 102 mmol/L Carbon Dioxide Level 31 mmol/L Anion Gap 5.0 mmol/L Blood Urea Nitrogen 54 mg/dl Creatinine 2.15 mg/dl 2.56 mg/dl Est Creatinine Clear Calc Drug Dose 17.6 ml/min 14.8 ml/min Estimated GFR () 23.1 18.7 Estimated GFR (Non- 19.9 16.1 BUN/Creatinine Ratio 25.0 Random Glucose 94 mg/dl Calcium Level 7.9 mg/dl Assessment and Plan 86 y/o F Hx PAF, HTN, CKD III, hypothyroid, anemia. Presents with SOB which woke her up from sleep. She reports she has been SOB over the past few days and has had difficulty with any exertion. She also states she has had difficulty lying flat and sleeping as a result. She denies CP, a productive cough, fevers. Initial imaging and clinical exam are consistent with acute CHF. CHF - possibly acute - resolved. - Echo ordered, Lasix provided - received 40mg IV in ER - ordered 40 mg IV BID as pt still with shortness of breath, +JVD and edema in BLE. Creatinine slightly improved initially with diuresis, so likely volume overload; but now worsening. - HOLD HCTZ/Triamterene, continue Losartan -Patient ambulated today and maintained an 02 sat above 92% - CXR reviewed:. Bilateral mixed interstitial and alveolar opacities within a mid and lower lung zone predominant distribution are suspicious for pneumonia with pulmonary edema thought to be less likely. Small bilateral pleural effusions. Cardiomegaly. Afebrile, no signs of acute respiratory infection however monitor for possible involvement - if not improving with diuretics alone consider pneumonia -patient is asymptomatic. Ok for discharge from this standpoint, however please look at second problem. will hold lasix -Acute renal failure worsening creatinine. Above, 2; as patient was asymptomatic yesterday, and decided to replace fluids that were lost in past 24 hours. repeated levels today, no improvement. creat. is now 2.5 will consult nephro, and hold discharge History of CAD - markers negative - cont ASA, statin CKD III As discussed above. - creat slightly worsened with diuresis. currently 2.5, creatinine worsened even after fluid bolus. -unsure if fluid rention is due to worsening renal function. -will admit patient and consult nephrology. - Baseline appears to be around ~1.5 Anemia - Hb is at baseline. PAF - currently sinus - anticoagulated with Pradaxa and Metoprolol. Hypothyroid - cont Synthroid DVT ppx: pradaxa CODE: Full code Disposition: From the [facility], assisted GIANNA rodriguez to assist with dc planning. Discharge planning: halfway facility
[2017-10-02] MEDS: DONEPEZIL HCL 5 MG TAB PO SCH (20:34)
[2017-10-02] MEDS: SIMVASTATIN 20 MG TAB PO SCH (20:34)
[2017-10-03 04:00] VITALS: BP 133/66; PULSE 80; TEMP 36.9; O2SAT 93
[2017-10-03 06:11] VITALS: BP 133/63; PULSE 80
[2017-10-03] MEDS: LEVOTHYROXINE 125 MCG TAB PO SCH (06:13)
[2017-10-03] MEDS: METOPROLOL TARTRATE 25 MG TAB PO SCH ×3 (06:13→22:45)
[2017-10-03 06:49] LABS: CREATININE 1.79 mg/dl (0.60-1.20)
[2017-10-03 08:20] VITALS: BP 128/78; PULSE 86; TEMP 36.8; O2SAT 91
[2017-10-03] MEDS: MAGNESIUM OXIDE 400 MG TAB PO SCH (08:20)
[2017-10-03] MEDS: DABIGATRAN ELEXILATE 75 MG CAP PO SCH ×2 (08:20→22:44)
[2017-10-03] MEDS: ASPIRIN 81 MG ECTAB PO SCH (08:21)
[2017-10-03] MEDS: AMLODIPINE BESYLATE 5 MG TAB PO SCH (08:21)
--- NOTE | 2017-10-03 09:57 | Clinical Documentation Query ---
GERARDO Syed : CLINICAL DOCUMENTATION QUERY Patient is an 86 year old female admitted for evaluation of SOB. This was deemed "possibly acute, resolved". She was treated with IV Lasix BID for noted +JVD and BLE edema. Echocardiogram demonstrated grade 2 diastolic dysfunction with a normal LVEF. No attending documentation of these findings in the record. As appropriate, consider clarification as suggested below as this impacts accurate DRG assignment. Thank you. In your clinical opinion is this patient being managed for: ( x ) Acute diastolic CHF, POA, resolved ( ) Not Agree ( ) Other explanation of clinical findings (Please Explain) ( ) Unable to determine (Please Define) ( ) Need to Discuss The medical record reflects the following clinical findings, treatment, and risk factors. Clinical Indicators: As above Treatment: IV Lasix, echocardiogram, telemetry, cardiology consultation, I/O, daily weights Risk Factors: Age, atrial fibrillation, hypertension, CKD Please clarify and document your clinical opinion in the progress notes and discharge summary. Terms such as "probable", "suspected", "likely", "questionable", "possible", or "still to be ruled out" are acceptable. IF IN AGREEMENT, YOU MUST DOCUMENT ABOVE DIAGNOSTIC STATEMENT IN DAILY PROGRESS NOTES AND DISCHARGE SUMMARY. This document is not part of the patient's record. Thank You, Lance Salinas RN [phone]
--- NOTE | 2017-10-03 10:07 | Nephrology Consultation ---
Nephrology Consultation Date & Providers Date of Consultation: Oct 03, 2017. Primary Care Provider: Moose Chow M.D. Referring Provider: Reason for Consultation evaluation and management for Tyra with h/o CKD History of Present Illness Denice Oscar is a 78-year-old female with past medical history significant for hypertension, stage III CKD and paroxysmal atrial fibrillation on anticoagulation admitted to the hospital with CHF exacerbation. Nephrologic consult was requested to manage acute kidney injury. Electronic medical records including labs and imaging are reviewed in detail during patient's visit. Denice osborne presented to the hospital 3 days ago with shortness of breath, was diagnosed with CHF exacerbation. She denies having prior history of shortness of breath requiring hospital admission. Has not been on diuretics at home. She denies any recent changes in diet or medication, no history of recent diarrhea, vomiting or other symptoms of volume depletion. No LE edema. 2D echo showed normal ejection fraction, grade 2 diastolic dysfunction. She was started on IV Lasix 40 twice a day with improvement in volume status. Her blood pressure during hospital course was variable, initially her blood pressure systolic was as high as 180s which improved and has been staying around 130s. She has AFib, rate controlled currently on Pradaxa and metoprolol. She has been on losartan 100 mg at home which has been on hold. She has stage 3 chronic kidney disease with baseline creatinine around 1.6-1.7, possibly secondary to microvascular disease. Prior urinalysis was negative for hematuria proteinuria. No renal ultrasound available. On admission her creatinine was 1.7 with her baseline around 1.6-1.7. Over last 2 days her renal function was worsening, creatinine increased to 2.6 yesterday. Diuretics was on hold since yesterday due to worsening renal function. She has been making decent amount of urine and she has been more than 2 L net negative since admission. She denies any voiding symptoms. Patient is a nonsmoker and denies any family history of chronic kidney disease or end-stage renal disease. Renal function improved and creatinine was 1.8 this morning which is close to her baseline, electrolyte acceptable. Blood pressure well controlled and urine output has been decent. Overall she is feeling much better, shortness of breath resolved. Allergies Coded Allergies: Morphine (Verified Allergy, Unknown, UNKNOWN, 09/30/17) Zolpidem (Verified Allergy, Unknown, UNKNOWN, 09/30/17) Inpatient Medications Current Inpatient Medications Medications (Trade) Dose Ordered Sig/Mateo Route Start Time Stop Time Status Last Admin Dose Admin Amlodipine Besylate (Norvasc Tab) 5 mg DAILY PO 09/30/17 09:00 10/30/17 08:59 10/03/17 08:21 5 MG Aspirin (Ecotrin Tab) 81 mg DAILY PO 09/30/17 09:00 10/30/17 08:59 10/03/17 08:21 81 MG Dabigatran (Pradaxa Cap) 75 mg BID PO 09/30/17 09:00 10/30/17 08:59 10/03/17 08:20 75 MG Donepezil HCl (Aricept Tab) 5 mg QPM PO 09/30/17 21:00 10/30/17 20:59 10/02/17 20:34 5 MG Levothyroxine Sodium (Synthroid Tab) 125 mcg DAILYBB PO 09/30/17 09:00 10/30/17 08:59 10/03/17 06:13 125 MCG Losartan Potassium (coZAAR TAB) 50 mg BID PO 09/30/17 09:00 10/30/17 08:59 Future Hold 10/02/17 20:34 50 MG Metoprolol Tartrate (Lopressor Tab) 25 mg Q8 PO 09/30/17 14:00 10/30/17 13:59 10/03/17 06:13 25 MG Simvastatin (Zocor Tab) 20 mg HS PO 09/30/17 21:00 10/30/17 20:59 10/02/17 20:34 20 MG Magnesium Oxide (Mag-Ox Tab) 200 mg DAILY PO 09/30/17 09:00 10/30/17 08:59 10/03/17 08:20 200 MG Acetaminophen (Tylenol Tab) 650 mg Q4H PRN PO 09/30/17 06:45 10/30/17 06:44 10/01/17 20:35 650 MG Al Hydrox/Mg Hydrox/Simethicone (Maalox Max Susp) 15 ml Q4H PRN PO 09/30/17 06:45 10/30/17 06:44 Magnesium Hydroxide (Milk Of Magnesia Susp) 30 ml Q12H PRN PO 09/30/17 06:45 10/30/17 06:44 Ondansetron HCl (Zofran Inj) 4 mg Q6H PRN IV 09/30/17 06:45 10/30/17 06:44 Polyethylene (Miralax Powder Packet) 17 gm DAILY PRN PO 09/30/17 06:45 10/30/17 06:44 Miscellaneous (Iv Fluids Completed) 1 ea PRN PRN N/A 09/30/17 07:00 09/30/18 06:59 Family History FHx: heart disease FHx: hypertension Patient denies any family history of chronic kidney disease or end-stage renal disease. 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 Has 2 children, her daughter lives in [place] who is actively involved in her care. She lives at an independent care unit at [facility]. Review of Systems A complete review of systems was performed. Pertinent positives are noted above. All other systems are negative. Physical Exam Date Time Temp Pulse Resp B/P (MAP) Pulse Ox O2 Delivery O2 Flow Rate FiO2 10/03/17 08:20 36.8 86 18 128/78 (95) 91 10/03/17 06:11 80 133/63 (86) 10/03/17 04:00 Room Air 10/03/17 04:00 36.9 80 20 133/66 (88) 93 Room Air 10/03/17 00:00 Room Air 10/02/17 23:28 36.8 86 18 133/65 (87) 96 Room Air 10/02/17 19:50 36.7 72 20 154/74 (100) 94 Room Air 10/02/17 19:50 Room Air 10/02/17 16:00 Room Air 10/02/17 15:30 36.5 83 18 155/75 (101) 95 Room Air 10/02/17 12:52 36.6 78 18 138/78 (98) 96 Room Air 10/02/17 12:00 Room Air GENERAL: elderly female, AAA x 3, pleasant, not in any distress. HEENT: Atraumatic, normocephalic. NECK: Supple, no JVD ENT: No sinus tenderness MOUTH and THROAT: Moist oral mucosa. RESPIRATORY: clear to auscultation bilaterally, no wheezes or rales. CARDIOVASCULAR: S1, S2 normal, rate controlled, irregular rhythm. ABDOMEN: Soft, nontender, positive bowel sound. MUSCULOSKELETAL: No joint swelling, erythema or tenderness. SKIN: No skin rash EXTREMITY: No lower extremity edema NEURO: No gross focal neurological deficit, speech fluent. PSYCHIATRY: Normal mood and judgment Laboratory Results Last 24 Hours Test 10/02/17 13:32 10/03/17 06:04 Creatinine 2.56 mg/dl 1.79 mg/dl Est Creatinine Clear Calc Drug Dose 14.8 ml/min 21.1 ml/min Estimated GFR () 18.7 28.8 Estimated GFR (Non- 16.1 24.9 Impression (1) TYRA (acute kidney injury) (2) CHF (congestive heart failure) (3) Anemia (4) Hypertension (5) CKD (chronic kidney disease) stage 3, GFR 30-59 ml/min 86-year-old female with past medical history of hypertension, stage II CKD and CHF with diastolic dysfunction admitted to the hospital with acute CHF exacerbation. She was started with IV diuretics with improvement in volume status, has been net negative. On admission blood pressure significantly elevated which currently improved as well. Initial chest x-ray was concerning for pulmonary vascular congestion, 2D echo showed well preserved EF, 60-65 percent, grade 2 diastolic dysfunction. The She has stage III CKD with baseline creatinine around 1.6-1.7, on admission creatinine was at baseline however rapidly worsened in the setting of variable blood pressure on high dose of diuretics. Prior urinalysis with no hematuria proteinuria. Acute kidney injury was most likely secondary to hemodynamics changes, creatinine peaked to 2.6. Diuretics was on hold since yesterday and renal function seems to have started to improve, creatinine 1.8 this morning, electrolyte acceptable. Blood pressure well controlled and continues to have decent urine output. She was found to have anemia with iron deficiency, hemoglobin remained stable. Recommendations --Renal functional started to improve, creatinine close to baseline, electrolyte acceptable. Has been having decent urine output, net negative, blood pressure and volume status acceptable. --continue to hold diuretics for now --eventually patient may need to be on low-dose diuretics chronic headache with history of CHF with grade 2 diastolic dysfunction --although renal function close to baseline, would like to watch patient for at least next 24 hours off of diuretics --start on Venofer IV --check PTH --avoid all NSAIDs, follow low-salt diet and keep hydrated and avoid volume depletion Thank you for allowing me to participate in your patient's care. It was a pleasure to see Denice
[2017-10-03] MEDS ORDERED: IRON SUCROSE INJ 200 MG in SODIUM CHLORIDE 0.9% 100ML 100 ML IV SCH (12:00)
--- NOTE | 2017-10-03 14:18 | Hospitalist Progress Note ---
Hospitalist Progress Note Date of Service Oct 03, 2017. Subjective Pt evaluation today including: conversation w/ patient, physical exam, lab review, review of studies, review of inpatient medication list Voiding: no voiding problems Patient resting in bed. Feeling well. Laying flat- denies any SOB. Eating and drinking OK. From [place]- plans to return at discharge. Patient denies any fever, chills, sweats, lightheadedness, dizziness, vision changes, CP, palpitations, edema, SOB, wheezing, cough, abdominal pain, nausea, vomiting, diarrhea, urinary symptoms, melena, numbness/tingling, weakness, muscle/joint pain, anxiety/depression, active bleeding, or new skin discoloration/changes. Medications Current Inpatient Medications Medications (Trade) Dose Ordered Sig/Mateo Route Start Time Stop Time Status Last Admin Dose Admin Amlodipine Besylate (Norvasc Tab) 5 mg DAILY PO 09/30/17 09:00 10/30/17 08:59 10/03/17 08:21 5 MG Aspirin (Ecotrin Tab) 81 mg DAILY PO 09/30/17 09:00 10/30/17 08:59 10/03/17 08:21 81 MG Dabigatran (Pradaxa Cap) 75 mg BID PO 09/30/17 09:00 10/30/17 08:59 10/03/17 08:20 75 MG Donepezil HCl (Aricept Tab) 5 mg QPM PO 09/30/17 21:00 10/30/17 20:59 10/02/17 20:34 5 MG Levothyroxine Sodium (Synthroid Tab) 125 mcg DAILYBB PO 09/30/17 09:00 10/30/17 08:59 10/03/17 06:13 125 MCG Losartan Potassium (coZAAR TAB) 50 mg BID PO 09/30/17 09:00 10/30/17 08:59 Future Hold 10/02/17 20:34 50 MG Metoprolol Tartrate (Lopressor Tab) 25 mg Q8 PO 09/30/17 14:00 10/30/17 13:59 10/03/17 06:13 25 MG Simvastatin (Zocor Tab) 20 mg HS PO 09/30/17 21:00 10/30/17 20:59 10/02/17 20:34 20 MG Magnesium Oxide (Mag-Ox Tab) 200 mg DAILY PO 09/30/17 09:00 10/30/17 08:59 10/03/17 08:20 200 MG Acetaminophen (Tylenol Tab) 650 mg Q4H PRN PO 09/30/17 06:45 10/30/17 06:44 10/01/17 20:35 650 MG Al Hydrox/Mg Hydrox/Simethicone (Maalox Max Susp) 15 ml Q4H PRN PO 09/30/17 06:45 10/30/17 06:44 Magnesium Hydroxide (Milk Of Magnesia Susp) 30 ml Q12H PRN PO 09/30/17 06:45 10/30/17 06:44 Ondansetron HCl (Zofran Inj) 4 mg Q6H PRN IV 09/30/17 06:45 10/30/17 06:44 Polyethylene (Miralax Powder Packet) 17 gm DAILY PRN PO 09/30/17 06:45 10/30/17 06:44 Miscellaneous (Iv Fluids Completed) 1 ea PRN PRN N/A 09/30/17 07:00 09/30/18 06:59 Iron Sucrose 200 mg/Sodium Chloride 110 ml @ 420 mls/hr Q2D@1200 IV 10/03/17 12:00 10/11/17 12:16 10/03/17 12:00 420 MLS/HR Objective Vital Signs Date Time Temp Pulse Resp B/P (MAP) Pulse Ox O2 Delivery O2 Flow Rate FiO2 10/03/17 12:00 Room Air 10/03/17 08:20 36.8 86 18 128/78 (95) 91 10/03/17 08:00 Room Air 10/03/17 06:11 80 133/63 (86) 10/03/17 04:00 Room Air 10/03/17 04:00 36.9 80 20 133/66 (88) 93 Room Air 10/03/17 00:00 Room Air 10/02/17 23:28 36.8 86 18 133/65 (87) 96 Room Air 10/02/17 19:50 36.7 72 20 154/74 (100) 94 Room Air 10/02/17 19:50 Room Air 10/02/17 16:00 Room Air 10/02/17 15:30 36.5 83 18 155/75 (101) 95 Room Air Physical Exam General Appearance: no apparent distress Eyes: normal inspection, PERRL ENT: hearing grossly normal Neck: supple Respiratory/Chest: lungs clear, no respiratory distress, no accessory muscle use Cardiovascular: + irregularly irregular (rate controlled) Abdomen: normal bowel sounds, non tender, soft Extremities: no pedal edema, no calf tenderness Neurologic/Psychiatric: alert, normal mood/affect, oriented x 3 Skin: normal color, warm/dry, no rash Laboratory Results Last 24 Hours Test 10/03/17 06:04 Creatinine 1.79 mg/dl Est Creatinine Clear Calc Drug Dose 21.1 ml/min Estimated GFR () 28.8 Estimated GFR (Non- 24.9 Assessment and Plan 86 y/o F Hx PAF, HTN, CKD III, hypothyroid, anemia. Presents with SOB which woke her up from sleep. She reports she has been SOB over the past few days and has had difficulty with any exertion. She also states she has had difficulty lying flat and sleeping as a result. She denies CP, a productive cough, fevers. Initial imaging and clinical exam are consistent with acute CHF. 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
[2017-10-03 15:30] VITALS: BP 121/67; PULSE 67; TEMP 36.9; O2SAT 97
[2017-10-03 19:32] VITALS: BP 151/62; PULSE 74; TEMP 36.2; O2SAT 95
[2017-10-03 20:00] VITALS: O2SAT 95
[2017-10-03] MEDS: DONEPEZIL HCL 5 MG TAB PO SCH (22:44)
[2017-10-03] MEDS: SIMVASTATIN 20 MG TAB PO SCH (22:44)
[2017-10-04 00:42] VITALS: BP 146/66; PULSE 82; TEMP 36.8; O2SAT 98
[2017-10-04 04:10] VITALS: BP 149/66; PULSE 72; TEMP 36.9; O2SAT 97
[2017-10-04 06:27] VITALS: BP 138/66; PULSE 80
[2017-10-04] MEDS: METOPROLOL TARTRATE 25 MG TAB PO SCH ×2 (06:29→13:43)
[2017-10-04 06:50] LABS: CALCIUM 7.8 mg/dl (8.5-10.1); CREATININE 1.74 mg/dl (0.60-1.20)
[2017-10-04 06:51] LABS: PHOSPHORUS 2.5 mg/dl (2.5-4.9)
[2017-10-04 07:15] VITALS: BP 146/77; PULSE 76; TEMP 36.9; O2SAT 96
[2017-10-04] MEDS: LEVOTHYROXINE 125 MCG TAB PO SCH (08:21)
[2017-10-04] MEDS: AMLODIPINE BESYLATE 5 MG TAB PO SCH (08:21)
[2017-10-04] MEDS: MAGNESIUM OXIDE 400 MG TAB PO SCH (08:21)
[2017-10-04] MEDS: ASPIRIN 81 MG ECTAB PO SCH (08:21)
[2017-10-04] MEDS: DABIGATRAN ELEXILATE 75 MG CAP PO SCH (08:21)
--- NOTE | 2017-10-04 09:40 | Cardiology Follow-Up ---
Subjective Date of Service: Oct 04, 2017. Pt evaluation today including: conversation w/ patient, physical exam, lab review, review of studies, review of inpatient medication list History of Present Illness This is a very pleasant 86-year-old woman who has a history of dyspnea on exertion as well as palpitations. She has had intermittent palpitations in the past however evaluation has not disclosed an arrhythmia although I believe the actual episodes were not recorded. On one occasion we were able to document atrial fibrillation on May 08, 2012. On that electrocardiogram her heart rate is 78 beats per minute, her rate controlled in part due to already being on metoprolol. She was started on Pradaxa that day and in followup May 22, 2012 she was back in sinus rhythm. An echocardiogram was also done which was unremarkable. She reported intermittent episodes of palpitations, these were not terribly bothersome to her and she did not have hemodynamic symptoms such as lightheadedness, presyncope or syncope. She does not have chest discomfort. She believes that she had dyspnea on exertion (climbing steps) the day she presented to your office in atrial fibrillation and that would be consistent with the arrhythmia causing the shortness of breath. She did have a stress echo done on 06/28/2013, this showed a good exercise tolerance of 6 minutes and 5 seconds, she achieved 86% of her predicted maximal heart rate and had no ischemia. She was in sinus rhythm during that test. We had discussed maintenance of sinus rhythm however due to minimal symptoms we treated her with rate control and anticoagulation. She had been doing very well with that regimen with very good control of her symptoms and not a lot of documentation of her arrhythmia. She was admitted to the hospital on 05/30/2014 where she had a elective left carotid endarterectomy for 90% stenosis and then the next morning had several hours of chest discomfort. Evaluation of the chest discomfort was negative and although she could have coronary artery disease it was unlikely that her discomfort was caused by coronary artery disease and no further evaluation was done. During her hospitalization however she did have runs of PAT as well as some paroxysmal atrial fibrillation. We did adjust her rate controlling medicines slightly with an increase in metoprolol tartrate from 25 mg twice a day to 3 times a day. She also had an emergency room visit at the end of January 2015 for rapid heart rate. She reports feeling the rapid heart rate, but no symptoms of lightheadedness, dizziness or presyncope and no chest discomfort. By the time she got to the emergency room the episode evidently had resolved and no abnormality was identified. She actually went in by ambulance and she thinks the episode might have lasted about 0.5 hour. She does not recall having this particular feeling before and it seems different than when she is in atrial fibrillation at which time she is really not aware of the arrhythmia. We did increase her metoprolol to 100 mg daily. She has been observed to have predominantly systolic hypertension in the past. She has not had difficultly with CHF in the past. She presented with FUENTES, PND and cough. She was not able to sleep well for several nights due to SOB. She was found to be in congestive heart failure and was diuresed with improvement in her symptoms. Her creatinine increased significantly as well, but that has improved now with rehydration. She feels well today, she has no shortness of breath and is laying comfortably in bed. No complaints. Social History Smoking Status: Never Smoker History of Alcohol Use: No Review of Systems Respiratory: No cough, No shortness of breath Cardiac: No chest pain, No edema Medications Cardiovascular: Item Value Date Time Simvastatin 20 mg 09/30/17 2100 (Zocor Tab) HS/PO 10/03/17 2244 Metoprolol 25 mg 09/30/17 1400 Tartrate Q8/PO 10/04/17 0629 (Lopressor Tab) Amlodipine 5 mg 09/30/17 0900 Besylate DAILY/PO 10/04/17 0821 (Norvasc Tab) Aspirin 81 mg 09/30/17 0900 (Ecotrin Tab) DAILY/PO 10/04/17 0821 Dabigatran 75 mg 09/30/17 0900 (Pradaxa Cap) BID/PO 10/04/17 0821 Objective Vital Signs Past 12 Hours Date Time Temp Pulse Resp B/P (MAP) Pulse Ox O2 Delivery O2 Flow Rate FiO2 10/04/17 07:45 Room Air 10/04/17 07:15 36.9 76 16 146/77 (100) 96 Room Air 10/04/17 06:27 80 138/66 (90) 10/04/17 04:10 36.9 72 16 149/66 (93) 97 Room Air 10/04/17 04:00 Room Air 10/04/17 00:42 36.8 82 16 146/66 (92) 98 Room Air 10/04/17 00:00 Room Air Last Recorded Weight-Kilograms: 73.100 Physical Exam Constitutional: General Apperance: heathly-appearing Level of Distress: NAD Lungs: Respiratory effort: no dyspnea, good air movement Auscultation: breath sounds normal, no wheezing Cardiovascular: Heart Auscultation: RRR, no murmurs, no rubs, no gallops Peripheral Pulses: Bruits: none appreciated Extremities: no edema Data Laboratory Results: Last 24 Hours Test 10/04/17 05:49 Sodium Level 141 mmol/L Potassium Level 4.0 mmol/L Chloride Level 108 mmol/L Carbon Dioxide Level 29 mmol/L Anion Gap 3.0 mmol/L Blood Urea Nitrogen 43 mg/dl Creatinine 1.74 mg/dl Est Creatinine Clear Calc Drug Dose 21.7 ml/min Estimated GFR () 29.8 Estimated GFR (Non- 25.7 BUN/Creatinine Ratio 24.6 Random Glucose 94 mg/dl Calcium Level 7.8 mg/dl Phosphorus Level 2.5 mg/dl Magnesium Level 2.8 mg/dl Parathyroid Hormone (Intact) 265.0 pg/mL Assessment and Plan 1. SOB: Her shortness of breath on admission was due to congestive heart failure , that has resolved.. 2. CHF: Probably diastolic in nature, she does have some degree of diastolic dysfunction but her systolic function is normal. Cardiac enzymes have been negative and ECG without acute change, suspect this was not due to an ischemic event. She does not have normal renal function but it does not seem to have changed appreciably. The root cause of the congestive heart failure remains unclear. She will likely need diuretics as an outpatient, however she does not seem to have a lot of room between congestive heart failure and renal insufficiency currently. 3. AF: She has what has seemed to be relatively infrequent PAF in the past, currently she is in AF with a controlled heart rate. I would continue anticoagulation but her rhythm probably did not contribute to her presentation. 4. Hypertension: Her BP tends to run high, and remains somewhat elevated here. She is on fairly high doses of medications, but may need more over the long run. Hypertension might contribute to her diastolic dysfunction (she does have some LVH but not severe) as well as perhaps deterioration in her kidney function. 5. CKD: Her creatinine has been mildly elevated for some time, but with diuresis trended higher. That improved with rehydration. Her diuretics are currently on hold, but I think she will need them as an outpatient. Thank you for allowing me to participate in her care.
[2017-10-04] MEDS ORDERED: LOSA50TA6 PO ×3 (11:50→12:43)
[2017-10-04] MEDS ORDERED: FURO-85 PO ×3 (11:50→12:42)
[2017-10-04 12:10] VITALS: BP 143/77; PULSE 65; TEMP 36.6; O2SAT 95
[2017-10-04] MEDS ORDERED: VTMD1000 PEG ×2 (12:34→12:44)
--- NOTE | 2017-10-04 12:38 | Nephrology Progress Note ---
Nephrology Progress Note Date of Service Oct 04, 2017. Chief Complaint F/u for Natanael with h/o CKD Subjective Denice was seen and examined this morning. Overall doing well, denies any symptoms /concerns. Renal function better, now at b/l, cr 1.7. BP stable. Review of Systems A complete review of systems was performed. Pertinent positives are noted above. All other systems are negative. Vital Signs Last 8 Hrs Date Time Temp Pulse Resp B/P (MAP) Pulse Ox O2 Delivery O2 Flow Rate FiO2 10/04/17 12:10 36.6 65 18 143/77 (99) 95 10/04/17 07:45 Room Air 10/04/17 07:15 36.9 76 16 146/77 (100) 96 Room Air 10/04/17 06:27 80 138/66 (90) Last Recorded Weight Weight (Kilograms): 73.100 Physical Exam GENERAL: Elderly female, AAA x 3, pleasant, healthy-appearing, not in any distress. NECK: Supple, no JVD. RESPIRATORY: CTA CARDIOVASCULAR: S1, S2 normal, rate rhythm regular. EXTREMITY: no lower extremity edema NEURO: speech fluent. PSYCHIATRY: Normal mood and judgment Family History FHx: heart disease FHx: hypertension Patient denies any family history of chronic kidney disease or end-stage renal disease. 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 Has 2 children, her daughter lives in [place] who is actively involved in her care. She lives at an independent care unit at [facility]. Laboratory Results Past 24 Hours 10/04/17 05:49 Test 10/04/17 05:49 10/04/17 10:27 Anion Gap 3.0 mmol/L (3-11) Est Creatinine Clear Calc Drug Dose 21.7 ml/min Estimated GFR () 29.8 Estimated GFR (Non- 25.7 BUN/Creatinine Ratio 24.6 (10-20) Calcium Level 7.8 mg/dl (8.5-10.1) Phosphorus Level 2.5 mg/dl (2.5-4.9) Magnesium Level 2.8 mg/dl (1.8-2.4) Parathyroid Hormone (Intact) 265.0 pg/mL (18.4-80.1) 25-Hydroxy Vitamin D Total 23.2 ng/ml (30-100) Allergies Coded Allergies: Morphine (Verified Allergy, Unknown, UNKNOWN, 09/30/17) Zolpidem (Verified Allergy, Unknown, UNKNOWN, 09/30/17) Medications Current Inpatient Medications Medications (Trade) Dose Ordered Sig/Mateo Route Start Time Stop Time Status Last Admin Dose Admin Amlodipine Besylate (Norvasc Tab) 5 mg DAILY PO 09/30/17 09:00 10/30/17 08:59 10/04/17 08:21 5 MG Aspirin (Ecotrin Tab) 81 mg DAILY PO 09/30/17 09:00 10/30/17 08:59 10/04/17 08:21 81 MG Dabigatran (Pradaxa Cap) 75 mg BID PO 09/30/17 09:00 10/30/17 08:59 10/04/17 08:21 75 MG Donepezil HCl (Aricept Tab) 5 mg QPM PO 09/30/17 21:00 10/30/17 20:59 10/03/17 22:44 5 MG Levothyroxine Sodium (Synthroid Tab) 125 mcg DAILYBB PO 09/30/17 09:00 10/30/17 08:59 10/04/17 08:21 125 MCG Losartan Potassium (coZAAR TAB) 50 mg BID PO 09/30/17 09:00 10/30/17 08:59 Future Hold 10/02/17 20:34 50 MG Metoprolol Tartrate (Lopressor Tab) 25 mg Q8 PO 09/30/17 14:00 10/30/17 13:59 10/04/17 06:29 25 MG Simvastatin (Zocor Tab) 20 mg HS PO 09/30/17 21:00 10/30/17 20:59 10/03/17 22:44 20 MG Magnesium Oxide (Mag-Ox Tab) 200 mg DAILY PO 09/30/17 09:00 10/30/17 08:59 10/04/17 08:21 200 MG Acetaminophen (Tylenol Tab) 650 mg Q4H PRN PO 09/30/17 06:45 10/30/17 06:44 10/01/17 20:35 650 MG Al Hydrox/Mg Hydrox/Simethicone (Maalox Max Susp) 15 ml Q4H PRN PO 09/30/17 06:45 10/30/17 06:44 Magnesium Hydroxide (Milk Of Magnesia Susp) 30 ml Q12H PRN PO 09/30/17 06:45 10/30/17 06:44 Ondansetron HCl (Zofran Inj) 4 mg Q6H PRN IV 09/30/17 06:45 10/30/17 06:44 Polyethylene (Miralax Powder Packet) 17 gm DAILY PRN PO 09/30/17 06:45 10/30/17 06:44 Miscellaneous (Iv Fluids Completed) 1 ea PRN PRN N/A 09/30/17 07:00 09/30/18 06:59 Iron Sucrose 200 mg/Sodium Chloride 110 ml @ 420 mls/hr Q2D@1200 IV 10/03/17 12:00 10/11/17 12:16 10/03/17 12:00 420 MLS/HR Impression (1) NATANAEL (acute kidney injury) (2) CHF (congestive heart failure) (3) Anemia (4) Hypertension (5) CKD (chronic kidney disease) stage 3, GFR 30-59 ml/min 86-year-old female with past medical history of hypertension, stage II CKD and CHF with diastolic dysfunction admitted to the hospital with acute CHF exacerbation. She was started with IV diuretics with improvement in volume status, has been net negative. On admission blood pressure significantly elevated which currently improved as well. Initial chest x-ray was concerning for pulmonary vascular congestion, 2D echo showed well preserved EF, 60-65 percent, grade 2 diastolic dysfunction. The She has stage III CKD with baseline creatinine around 1.6-1.7, on admission creatinine was at baseline however rapidly worsened in the setting of variable blood pressure on high dose of diuretics. Prior urinalysis with no hematuria proteinuria. Acute kidney injury was most likely secondary to hemodynamics changes, creatinine peaked to 2.6. Diuretics was on hold since yesterday and renal function seems to have started to improve, creatinine 1.8 this morning, electrolyte acceptable. Blood pressure well controlled and continues to have decent urine output. She was found to have anemia with iron deficiency, hemoglobin remained stable. Recommendations --Renal functional improved, creatinine at baseline, electrolyte acceptable. Has been having decent urine output, net negative, blood pressure and volume status acceptable. --check vit D --on Venofer IV -- resume losartan at 50 /d --start on lasix 20/d, DC HCTZ --avoid all NSAIDs, follow low-salt diet and keep hydrated and avoid volume depletion --OK to be DC --should have out pt nephrology f/u Will follow
[2017-10-04] MEDS ORDERED: VNFI IV ×3 (12:46→13:21)
--- NOTE | 2017-10-04 12:57 | Discharge Instructions ---
Discharge Instructions Date of Service Oct 04, 2017. Admission Reason for Admission: Chf (Congestive Heart Failure) Discharge Discharge Diagnosis / Problem: CHF exacerbation, TYRA Discharge Goals Goal(s): Decrease discomfort, Improve function, Increase independence, Improve disease control, Learn about illness, Diagnostic testing, Therapeutic intervention, Prevent Disease Progression Activity Recommendations Activity Limitations: resume your previous activity . Instructions / Follow-Up Instructions / Follow-Up Congestive heart failure: Start Lasix 20 mg daily Call your Primary Care doctor if any of the following symptoms or problems start or get worse: * Shortness of breath or difficulty breathing * Wake up at night short of breath * Chest pain * Cough * Swelling of your hands, feet, or legs * More fatigued or tired with your normal activity * Palpitations - sudden fast heart beats WEIGHT * Weigh yourself every morning after using the bathroom. * Use the same scale. * Wear the same amount of clothing. * Write your weight down on a chart. * Call your Primary Care doctor if you gain more than 2-3 pounds in 1-2 days. MEDICATIONS * Use this discharge instruction sheet for medication instructions. * Take your medications at the time your doctor ordered. * Do not skip a dose of your medicines. * If you miss a dose of medicine, take it as soon as possible, but DO NOT DOUBLE A DOSE. * Read your medicine information when you get home. * Know all of the side effects of your medicine. If in doubt, ask your pharmacist * Call your Primary Care doctor's office if you have any side effects. * Be sure all of your doctors know what medicine and herbs you take (including cold, flu, and herbal medicine). Take the following with you to your follow-up doctor appointments: * Weight Chart * Medication List * List of questions Do not drink excessive alcohol, beer or wine. Atrial fibrillation: Continue Pradaxa 75 mg twice daily and Metoprolol 25 mg three times per day Anemia: You will need 4 more doses of IV Iron transfusion. Home health services will be setup to give you these transfusions. HTN: STOP Dyazide Losartan was CHANGED to 50 mg daily Vitamin D deficiency: Start Vitamin D 1,000 IU daily Resume all other regular home medications as prescribed FOLLOW-UPS: Please follow-up with your PCP within 5-7 days Please follow-up with Nephrology within 1 month Please follow-up/keep all of your subspecialty appointments Current Hospital Diet Patient's current hospital diet: AHA Diet (Heart Healthy), Low Sodium Diet (2gm Na) Discharge Diet Recommended Diet: AHA Diet (Heart Healthy), Low Sodium Diet (2gm Na) Pending Studies Studies pending at discharge: no Laboratory Results Hemoglobin A1c Test 07/15/17 14:45 Range/Units Estimated Average Glucose 120 mg/dl Hemoglobin A1c 5.8 H 4.5-5.6 % Lipid Panel Test 07/15/17 14:45 Range/Units Triglycerides Level 221 H 0-150 mg/dl Cholesterol Level 176 0-200 mg/dl HDL Cholesterol 55 mg/dl LDL Cholesterol Direct 106 mg/dl Cholesterol/HDL Ratio 3.2 LDL Cholesterol, Calculated mg/dl Medical Emergencies . Who to Call and When: Call 911 or go to the Emergency Room if: * If at any time you feel your situation is an emergency * You have tightness or pain in your chest that does not go away with rest or Nitroglycerin * You are very short of breath even with rest . Non-Emergent Contact Non-Emergency issues call your: Primary Care Provider, Gas Pipe Layer, Security Installation Sales Technician Call Non-Emergent contact if: you have any medication questions . . "Provider Documentation" section prepared by Reina Mitchell. .
--- NOTE | 2017-10-04 13:06 | Discharge Summary ---
Discharge Summary Date of Service Oct 04, 2017. 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 Atherosclerosis of the aorta. Calcifications of the tracheobronchial tree. Biapical pleural-parenchymal scarring without pneumothorax. Small bilateral pleural effusions with bilateral patchy mixed interstitial and alveolar opacities within a mid and lower lung zone predominant distribution. The bones of the chest appear grossly intact. Degenerative changes are seen within the shoulders and spine. IMPRESSION: 1. Bilateral mixed interstitial and alveolar opacities within a mid and lower lung zone predominant distribution are suspicious for pneumonia with pulmonary edema thought to be less likely. 2. Small bilateral pleural effusions. 3. Cardiomegaly. The above report was generated using voice recognition software. It may contain grammatical, syntax or spelling errors. Electronically signed by: Adiel Valentin M.D. 09/30/2017 6:46 AM Dictated Date/Time: 09/30/2017 6:43 AM The status of this report is Signed. Draft = Not yet reviewed or approved by Radiologist. Signed = Reviewed and approved by Radiologist. ECHOCARDIOGRAM: Interpretation Summary * Name: ONIEL ISLAS Study Date: 09/30/2017 09:22 AM BP: 173/61 mmHg * Patient Location: [facility]\S\N285\S\1 HR: 58 * : 1930 (M/d/yyyy) Gender: Female Height: 67 in * Age: 86 yrs Ethnicity: [place] Weight: 171 lb * Ordering Physician: Darrius Mora * Referring Physician: Self, Referred * Performed By: Nury Espinal RDCS * * Reason For Study: CHF * BSA: 1.9 m2 * -- Conclusions -- * 1. Normal LV size. Mild concentric LVH. * 2. Normal LV systolic function. LVEF 60-65%. No regional wall motion abnormalities. Grade 2 diastolic dysfunction. * 3. Normal RV size and function. * 4. Severe biatrial enlargement. * 5. Mild mitral regurgitation. Aortic valve sclerosis without stenosis. * 6. Normal estimated PA and RA pressures. * 7. Compared with prior study on 05/09/2012: No significant change Procedure Details * A complete two-dimensional transthoracic echocardiogram was performed (2D, M- mode, Doppler and color flow Doppler). * A contrast injection of Definity was performed to improve assessment of LV function. * Contrast was injected into an intravenous site in the left arm. * One vial of Definity ultrasound contrast was diluted in normal saline to a total volume of 10 ml. A total of '3' ml of solution was administered during imaging. * Lot # [id number] of Definity utilized for procedure. * Expiration date OCT 06. * The attending nurse who injected the contrast agent was Emperartiz Herman RN. Left Ventricle * The left ventricle is grossly normal size. * There is mild concentric left ventricular hypertrophy. * Ejection Fraction = 60-65%. Right Ventricle * The right ventricle is not well visualized. * The right ventricle is grossly normal size. Atria * The left atrium is severely dilated. * The right atrium is severely dilated. * No ASD detected; PFO is not assessed. Mitral Valve * The mitral valve is grossly normal. * There is no mitral valve stenosis. * There is mild mitral regurgitation. Tricuspid Valve * There is trace tricuspid regurgitation. * PASP 30 mmHg Aortic Valve * The aortic valve opens well. * The aortic valve is trileaflet. * Aortic valve sclerosis mild, without significant aortic valvular stenosis. * No hemodynamically significant valvular aortic stenosis. * There is no significant aortic regurgitation. Pulmonic Valve * The pulmonary valve is inadequately visualized, but the Doppler data is adequate for interpretation. * Pulmonic stenosis is absent. * There is no significant pulmonary regurgitation. Great Vessels * The aortic root and proximal ascending aorta are normal sized. Pericardium/Pleural * There is no pericardial effusion. Great Vessels * There is no evidence of pulmonary hypertension. The PA systolic pressure is less than 36 mmHg. * Normal inferior vena cava size and collapsability with sniff indicates a normal right atrial pressure of 3 mmHg Left Ventricular Diastolic Function * Diastolic dysfunction, Grade II (pseudonormalization pattern). Consultations: Cardiology- Dr. Arambula Nephrology- Dr. Nolan Medication Reconciliation New Medications: Cholecalciferol (Vitamin D3) 1,000 Inter.unit Tab 1000 INTER.UNIT PEG DAILY for 30 Days, #30 TAB Furosemide (Lasix) 20 Mg Tab 20 MG PO DAILY for 30 Days, #30 TAB Iron Sucrose (Venofer) 100 Mg/5 Ml Inj 200 MG IV Q2D, #4 DOSE on 10/05, 10/07, 10/09, 10/11 Losartan Potassium (Cozaar) 50 Mg Tab 1 TAB PO DAILY for 30 Days, #30 TAB 5 Refills Continued Medications: Acetaminophen (Tylenol) 325 Mg Tab 650 MG PO Q4 PRN for Pain MAX 3GM/24HR Amlodipine (Norvasc) 5 Mg Tab 5 MG PO DAILY, TAB Aspirin (Aspirin Ec) 81 Mg Tab 81 MG PO DAILY Calcium Carbonate-Vitamin D (Calcium 600 + D) 1 Tab Tab 1 TAB PO BID Dabigatran Etexilate Mesylate (Pradaxa) 75 Mg Cap 75 MG PO BID, CAP Donepezil HCl (Donepezil HCl) 5 Mg Tab 5 MG PO QPM for 30 Days, TAB Levothyroxine Sodium (Synthroid) 125 Mcg Tab 125 MCG PO DAILY, TAB Magnesium (Magnesium 250 mg) 1 Tab Tab 1 TAB PO DAILY Metoprolol Tartrate (Lopressor) 25 Mg Tab 25 MG PO Q8 for 90 Days, TAB Multivitamin (Multivitamin) Tab 1 TAB PO DAILY, 0 Refills Simvastatin (Zocor) 20 Mg Tab 20 MG PO HS, TAB Discontinued Medications: Triamterene/Hctz (Dyazide 37.5MG/25MG) Cap 0.5 TAB PO DAILY, CAP Referrals At Discharge Follow up Referrals: Family Practice Referral - Within 1 Week with Wero Oro M.D. Employee Relation Manager Referral - Within 2 Weeks with Lisa Nolan MD Discharge Exam Review of Systems: Constitutional: No fever, No chills, No sweats, No weakness, No fatigue Eyes: No worsening of vision ENT: No hearing loss Respiratory: No cough, No shortness of breath, No hemoptysis Cardiovascular: No chest pain, No edema, No palpitations Abdomen: No pain, No nausea, No vomiting, No diarrhea, No constipation Musculoskeletal: No joint pain, No muscle pain, No swelling, No calf pain Genitourinary - Female: No dysuria, No hematuria Neurologic: No weakness Psychiatric: No depression symptoms, No anxiety Endocrine: No fatigue Hematologic / Lymphatic: No abnormal bleeding/bruising Integumentary: No rash, No itch, No new/changing skin lesions Physical Exam: General Appearance: no apparent distress Eyes: normal inspection, PERRL ENT: hearing grossly normal Neck: supple Respiratory/Chest: lungs clear, no respiratory distress, no accessory muscle use Cardiovascular: regular rate, rhythm, + systolic murmur Abdomen / GI: normal bowel sounds, non tender, soft Extremities: no calf tenderness, no pedal edema Neurologic/Psychiatric: alert, normal mood/affect, oriented x 3 Skin: normal color, warm/dry, no rash Hospital Course 86 y/o F Hx PAF, HTN, CKD III, hypothyroid, anemia. Presents with SOB which woke her up from sleep. She reports she has been SOB over the past few days and has had difficulty with any exertion. She also states she has had difficulty lying flat and sleeping as a result. She denies CP, a productive cough, fevers. Initial imaging and clinical exam are consistent with acute CHF. Acute diastolic CHF exacerbation- RESOLVED: - Admitted to tele- no acute events - Treated w/ IV Lasix- held due to TYRA- start Lasix 20 mg daily at discharge per nephrology - Monitor I&Os and daily weights- negative balance - ECHO- preserved EF, grade II diastolic dysfunction - Cardiology consulted, appreciate recommendations h/o CAD, paroxysmal a.fib- rate controlled: Continue ASA 81 mg daily, Metoprolol 25 mg TID, Pradaxa 75 mg BID, Mag-Ox supplement, Zocor 20 mg HS HTN- STABLE: - STOP Dyazide - Losartan 50 mg BID decreased to daily per nephrology recommendations - Continue Norvasc, Metoprolol TYRA on CKD stage III- baseline 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.6-1.8- IMPROVING, iron deficient anemia- baseline hgb 9-10- STABLE: - Follow PRP- 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.74 - Hold nephrotoxic agents and renally dose medications as appropriate - Nephrology consulted, appreciate recommendations- Lasix 20 mg daily, STOP Dyazide, decrease Losartan to daily, IV Venofer x5 doses, f/u outpatient - Follow H&H- STABLE - IV Venofer 200 mg x5 doses per nephrology- received 1 dose on 10/03- next doses on 10/05, 10/07, 10/09, 10/11- [facility] setup for injections - Elevated PTH, vitamin D low at 23- start Vitamin D supplement 1,000 IU daily Hypothyroidism: Continue Synthroid 125 mcg daily Cognitive dysfunction: Continue Aricept DVT prophylaxis: Pradaxa Code status: LEVEL I, FULL Disposition: Discharge to [facility] Total Time Spent: Greater than 30 minutes This includes examination of the patient, discharge planning, medication reconciliation, and communication with other providers. Discharge Instructions Please refer to the electronic Patient Visit Report (Discharge Instructions) for additional information. Follow-Up Please follow-up with your PCP within 5-7 days Please follow-up with Nephrology within 1 month Please follow-up/keep all of your subspecialty appointments Additional Copies To Wero Oro M.D.
[2017-10-04 13:26] VITALS: BP 143/77; PULSE 65; TEMP 36.6; O2SAT 95
[2017-10-05] MEDS ORDERED: CHOLECALCIFEROL 1000 INTER.UNIT TAB PO SCH (09:00)
== END 2017-10-04 15:31 | disposition home or self-care (01) | DRG 291 ==
LOC: EDBD 05:08 → C.EDB 05:09 → ENRESERV 07:08 → C.MED 07:57 → OBSVTOIN 10-02 14:43
PROVIDERS: ADMIT Internal Medicine; ATTEND Internal Medicine
DX: I13.0 Hypertensive heart and chronic kidney disease with heart failure and stage 1 through stage 4 chronic kidney disease, or unspecified chronic kidney disease (principal); I50.31 Acute diastolic (congestive) heart failure; N17.9 Acute kidney failure, unspecified; N18.3 Chronic kidney disease, stage 3 (moderate); I25.10 Atherosclerotic heart disease of native coronary artery without angina pectoris; D50.9 Iron deficiency anemia, unspecified; I48.0 Paroxysmal atrial fibrillation; E03.9 Hypothyroidism, unspecified; E55.9 Vitamin D deficiency, unspecified; Z79.01 Long term (current) use of anticoagulants; Z79.82 Long term (current) use of aspirin; Z79.899 Other long term (current) drug therapy; Z88.5 Allergy status to narcotic agent; Z88.8 Allergy status to other drugs, medicaments and biological substances; Z82.49 Family history of ischemic heart disease and other diseases of the circulatory system; Z82.3 Family history of stroke; Z81.8 Family history of other mental and behavioral disorders

== ENCOUNTER → 2017-10-11 | Outpatient (CLI) | payer OTHER ==
[~2017-10-11] MED LIST changes: +CALC-20 PO; -CLTP PO; +FURO-85 PO; -LEVO100T48 PO; +LEVO125T72 PO; -LEVO1TAB33 PO; -LOSA50TA54 PO; +LOSA50TA6 PO; +MAGN250T3 PO; -MGN PO; -TRIA37.5 PO; +VNFI IV; +VTMD1000 PEG
[2017-10-11 12:34] LABS: BASO % 0.8 %; BASO ABS # 0.06 K/uL (0-0.2); EOS % 4.1 %; EOS ABS # 0.29 K/uL (0-0.5); HEMATOCRIT 32.8 % (37-47); HEMOGLOBIN 10.1 g/dL (12.0-16.0); IG# 0.02 K/uL (0.00-0.02); LYMPH % 18.1 %; LYMPH ABS # 1.28 K/uL (1.2-3.4); MEAN CELL VOLUME 95.9 fL (80-100); MEAN CORPUSCULAR HEMOGLOBIN 29.5 pg (25-34); MEAN CORPUSCULAR HGB CONC 30.8 g/dl (32-36); MEAN PLATELET VOLUME 11.1 fL (7.4-10.4); MONO % 8.5 %; NEUT % 68.2 %; NEUT ABS # 4.81 K/uL (1.4-6.5); PLATELET COUNT 271 K/uL (130-400); RED CELL DISTRIBUTION WIDTH CV 14.1 % (11.5-14.5); RED CELL DISTRIBUTION WIDTH SD 48.6 fL (36.4-46.3); WHITE BLOOD COUNT 7.06 K/uL (4.8-10.8)
[2017-10-11 13:22] LABS: BLOOD UREA NITROGEN 39 mg/dl (7-18); CARBON DIOXIDE 29 mmol/L (21-32); CREATININE 1.76 mg/dl (0.60-1.20); GLUCOSE 125 mg/dl (70-99); POTASSIUM 4.7 mmol/L (3.5-5.1); SODIUM 138 mmol/L (136-145)
== END | disposition home or self-care (01) ==
LOC: C.LABOAKS 12:36
PROVIDERS: ATTEND Internal Medicine Critical Care Medicine
DX: D64.9 Anemia, unspecified (principal); N28.9 Disorder of kidney and ureter, unspecified

== ENCOUNTER → 2017-11-08 | Outpatient (CLI) | payer OTHER ==
[2017-11-08 13:17] LABS: BLOOD UREA NITROGEN 30 mg/dl (7-18); CALCIUM 8.7 mg/dl (8.5-10.1); CARBON DIOXIDE 28 mmol/L (21-32); CREATININE 1.53 mg/dl (0.60-1.20); GLUCOSE 86 mg/dl (70-99); POTASSIUM 4.2 mmol/L (3.5-5.1); SODIUM 141 mmol/L (136-145)
== END | disposition home or self-care (01) ==
LOC: C.LABOAKS 17:54
PROVIDERS: ATTEND Internal Medicine Cardiovascular Disease
DX: R06.02 Shortness of breath (principal)